=== PATIENT | female | born 1950 | race African-American/Black ===

== ENCOUNTER 2016-12-06 08:59 | Day surgery (SDC) | payer BC ==
[2016-11-21 15:37] VITALS: BMI 30.7
--- NOTE | 2016-11-25 09:41 | HP ---
Admitting History and Physical - Primary Care Physician PCP: Neptali Griffiths - Admission Chief Complaint: right breast cancer History of Present Illness: Patient is a 66 yo female noted to have a palpable right breast mass by her PCP over the summer. Patient had a mammogram and US which was c/w 2.1 cm mass at 11 o clock. 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 MRI done 04/12/16 was c/w known cancer as well as two suspicious right axillary lymph nodes. Bx of the two nodes were c/w benign pathology. PET scan was also negative for metastatic dz. Patient received neoadjuvant chemo and followup MRI showed a marked response to the chemotherapy. Patient is now presenting for right WE with NL, SNBx, possible ANDx with lymphoscintogram. History Source: Patient Limitations to Obtaining History: No Limitations - Past Medical History Cardiovascular: Yes: HTN Pulmonary: Yes: Other (H/O PE on eliquis) Heme/Onc: Yes: Sickle Cell Trait, Other (DVT/PE) Musculoskeletal: Yes: Other Rheumatology: Yes: Gout - Past Surgical History Past Surgical History: Yes: Breast Biopsy (left breast bx (1966)), (2) - Advance Directives Advance Directives: Yes: Health Care Proxy - Smoking History Smoking history: Never smoked Have you smoked in the past 12 months: No - Alcohol/Substance Use Hx Alcohol Use: Yes (SOCIALLY) - Social History History of Recent Travel: No Home Medications - Allergies Allergies/Adverse Reactions: Allergies Allergy/AdvReac Type Severity Reaction Status Date / Time colchicine Allergy Intermediate Hives Verified 11/21/16 15:24 - Home Medications Home Medications: Ambulatory Orders Allopurinol [Zyloprim -] 100 mg PO DAILY 06/14/16 Apixaban [Eliquis -] 2.5 mg PO BID 06/14/16 Atorvastatin Calcium 20 mg PO HS 06/14/16 Valsartan [Diovan] 80 mg PO BID 06/14/16 Amlodipine Besylate 5 mg PO DAILY 11/21/16 Family Disease History - Family Disease History Family Disease History: CA: Mother (gastric ca 70) Review of Systems - Review of Systems Breasts: reports: Other (No palpable right breast mass.) Physical Examination Constitutional: Yes: Well Nourished Breast(s): Yes: Other (No skin changes noted. Right breast mass without palpable mass) Problem List - Problems (1) Breast cancer, right Code(s): C50.911 - MALIGNANT NEOPLASM OF UNSP SITE OF RIGHT FEMALE BREAST Qualifiers: Breast location: upper outer quadrant of breast Patient gender: female Qualified Code(s): C50.411 - Malignant neoplasm of upper-outer quadrant of right female breast Assessment/Plan Plan: right breast WE with NL, SNBx, possible ANDx with lympho
[2016-12-06] MEDS ORDERED: SUCCINYLCHOLINE CHLORIDE 200 MG/10 ML VIAL ONE (12:48)
[2016-12-06] MEDS ORDERED: MIDAZOLAM HCL 2 MG/2 ML SINGLE DOSE VIAL ONE (12:49)
[2016-12-06] MEDS ORDERED: ONDANSETRON 4 MG/2 ML VIAL IVPB PRN (13:16)
[2016-12-06] MEDS ORDERED: DEXTROSE 5%-0.45% SALINE 1,000 ML IV SCH (13:30)
[2016-12-06] MEDS ORDERED: ONDANSETRON 4 MG/2 ML VIAL IVPUSH PRN (13:37)
[2016-12-06] MEDS ORDERED: LACTATED RINGERS SOLUTION 1,000 ML IV SCH (13:45)
[2016-12-06] MEDS ORDERED: PROMETHAZINE HCL 25 MG/1 ML VIAL IVPUSH PRN (14:11)
[2016-12-06] MEDS ORDERED: DESFLURANE GAS 240 ML BOTTLE IH ONE (14:26)
[2016-12-06 19:39] VITALS: BP 134/72; PULSE 78; TEMP 97.9
--- NOTE | 2016-12-07 09:40 | OP ---
DATE OF OPERATION: 12/06/2016 PREOPERATIVE DIAGNOSIS: Right breast cancer status post neoadjuvant chemotherapy. POSTOPERATIVE DIAGNOSIS: Right breast cancer status post neoadjuvant chemotherapy. PROCEDURE: Right breast partial mastectomy with complex tissue transfer and sentinel lymph node biopsy. ANESTHESIA: General intubated. ATTENDING SURGEON: Neptali Cervantes MD SPECIAL EFFECTS DESIGNER: ESTIMATED BLOOD LOSS: Minimal. COMPLICATIONS: None. DESCRIPTION OF PROCEDURE: The patient was made aware of the risks and benefits of the procedure and consented. The patient was placed in the supine position after going to the radiology suite where a needle was placed next to the index lesion and then to nuclear medicine where radioisotope tracer was injected into the right breast. After general anesthesia was induced, the patient was intubated. The operative site was prepped and draped in the usual sterile fashion. Then 2.5 mL of 1% isosulfan blue was locally infiltrated into the peritumoral tissues. Waiting approximately 10 minutes with gently manual compression, curvilinear incision was made in the right axilla using blunt and sharp dissection. Tissues were dissected down, which revealed 2 clusters of blue and hot lymph nodes that were surgically excised and submitted for pathological assessment. Touch prep analysis revealed no evidence of metastasis. Palpation of the rest of the axilla revealed no other suspicious lymph nodes, and the counts were less than 10% of the original baseline counts before surgery. The breast was then approached. A curvilinear incision was made next to the needle. Thick skin flaps were made. The needle was drawn through the puncture site and the wire . Two sutures were then excised around the needle and submitted with a short suture superior and long suture lateral. Specimen radiograph confirmed the presence of the index lesion. Additional segments were taken superior, inferior, mediolateral, deep, and anterior with clips at the new margins. The wound was copiously irrigated with normal saline. Hemostasis maintained by electrocautery. Thick tissue flaps were made by using electrocautery to take the breast tissue off the pectoralis muscle and rotating it into the defect with multiple layers of [id number] sutures of 2-0 Vicryl in a scaffolding-type fashion. The skin was then closed with deep 0 Vicryl followed by a running subcuticular 4-0 Monocryl. Steri-Strips and a sterile bandage was applied, and the patient having tolerated the procedure well, was transferred to the recovery room in excellent condition. NEPTALI ANDERSON M.D. VALE/[id number]
--- NOTE | 2016-12-10 14:41 | PATH ---
Surgical Pathology Report Patient Name: BEN GURROLA [facility]. Rec. #: [id number] /Age/Gender: 1950 (Age: 66) / F Account: [id number] Location: [facility] Taken: 12/06/2016 Received: 12/06/2016 Reported: 12/10/2016 Physicians: Neptali Griffiths M.D. Specimen(s) Received A: RIGHT AXILLARY SENTINEL NODES. FS#1 B: RIGHT BREAST WIDE EXCISION C: RIGHT BREAST DEEP MARGIN D: RIGHT BREAST SUPERIOR MARGIN E: RIGHT BREAST MEDIAL MARGIN F: RIGHT BREAST INFERIOR MARGIN G: RIGHT BREAST LATERAL MARGIN H: RIGHT BREAST ANTERIOR MARGIN Clinical History Right breast cancer Status post neoadjuvant chemotherapy Intraoperative Consult Diagnosis A. Right axillary sentinel nodes, touch prep: Two benign lymph nodes. Dr. Vergara, 12/06/2016. Final Diagnosis A. LYMPH NODES, RIGHT AXILLARY, SENTINEL LYMPH NODE EXCISION: TWO BENIGN LYMPH NODES (0/2) BY STANDARD HEMATOXYLIN AND EOSIN STAIN (MULTIPLE LEVELS EXAMINED) AND AE1/3 IMMUNOSTAIN. HYALINIZED NODULE WITH CALCIFICATION AND METAPLASTIC OSSIFICATION PRESENT, SUGGESTIVE OF PRIOR BIOPSY SITE. B. RIGHT BREAST, WIDE EXCISION: FOCAL ATYPICAL DUCTAL HYPERPLASIA (ADH) ARISING IN A BACKGROUND OF FIBROCYSTIC CHANGES INCLUDING STROMAL FIBROSIS AND DUCTAL DILATATION. FAT NECROSIS AND FIBROSIS ALONG WITH HYALINIZED NODULE WITH CALCIFICATION AND METAPLASTIC OSSIFICATION SUGGESTIVE OF PRIOR BIOPSY SITE PRESENT. SMALL FIBROADENOMA PRESENT. NO RESIDUAL CARCINOMA IDENTIFIED. C. RIGHT BREAST, DEEP MARGIN, EXCISION: BENIGN BREAST TISSUE. BENIGN LYMPH NODE WITH HYALINIZED NODULE WITH CALCIFICATION AND METAPLASTIC OSSIFICATION PRESENT, SUGGESTIVE OF PRIOR BIOPSY SITE. D. RIGHT BREAST, SUPERIOR MARGIN, EXCISION: BENIGN BREAST TISSUE. E. RIGHT BREAST, MEDIAL MARGIN, EXCISION: BENIGN BREAST TISSUE. F. RIGHT BREAST, INFERIOR MARGIN, EXCISION: BENIGN BREAST TISSUE AND SMALL FIBROADENOMA. G. RIGHT BREAST, LATERAL MARGIN, EXCISION: BENIGN BREAST TISSUE. H. RIGHT BREAST, ANTERIOR MARGIN, EXCISION: FOCAL ATYPICAL DUCTAL HYPERPLASIA (ADH) ARISING IN A BACKGROUND OF BENIGN FATTY BREAST TISSUE. Comment: Also see prior specimens [id number] and DC16-10. Comments Breast Invasive Carcinoma: Surgical Pathology Cancer Case Summary Based on AJCC/UICC TNM, 7th edition Procedure _X__ Excision without image-guided localization Lymph Node Sampling (select all that apply) (required only if lymph nodes are present in the specimen) _X__ [place] lymph node(s) _X__ Lymph nodes present within the breast specimen (ie, intramammary lymph nodes) Specimen Laterality _X__ Right Tumor Size: Size of Largest Invasive Carcinoma _X__ No residual invasive carcinoma Tumor Focality _X__ No residual invasive carcinoma Macroscopic and Microscopic Extent of Tumor Skin _X__ Invasive carcinoma does not invade into the dermis or epidermis Nipple _X__ Not applicable (excisions less than total mastectomy) Ductal Carcinoma In Situ (DCIS) _X__ No DCIS is present Histologic Type of Invasive Carcinoma : _X__ Invasive carcinoma of no special type (ductal, not otherwise specified) Histologic Grade: ([place] Histologic Score) Tubular Differentiation _X__ No residual invasive carcinoma Nuclear Pleomorphism _X__ No residual invasive carcinoma Mitotic Rate _X__ No residual invasive carcinoma Overall Grade _X__ No residual invasive carcinoma after presurgical (neoadjuvant) therapy Margins _X__ Margins uninvolved by invasive carcinoma (required only if residual invasive carcinoma is present in specimen) Distance from closest margin: Cannot be determined. No residual carcinoma identified. _X__ Margins uninvolved by DCIS (required only if residual DCIS is present in specimen) Distance from closest margin: Cannot be determined. No residual carcinoma identified. Lymph-Vascular Invasion _X__ Not identified Lymph Nodes Total number of lymph nodes examined (sentinel and nonsentinel): _3 Number of sentinel lymph nodes examined: 2 Number of lymph nodes with macrometastases ( > 2 mm): 0 Number of lymph nodes with micrometastases (>0.2 mm to 2 mm and/or >200cells):0 Number of lymph nodes with isolated tumor cells (=0.2 mm and =200 cells): 0 Extranodal Extension _X__ Not identified Pathologic Staging (pTNM) Primary Tumor (Invasive Carcinoma): ypT0 Regional Lymph Nodes (pN): ypN0(i-) Biomarker Studies Results of ER and IA studies performed on a prior biopsy ( [id number]) block "2" at [facility] are as follows: ER (clone [id number] mouse monoclonal antibody by [employer]): 0% nuclear staining (Negative). IA (clone16 mouse monoclonal antibody by [employer]) : 0% nuclear staining (Negative). Results of Her2 (IHC) & Ki-67 studies performed on a prior biopsy ( [id number]) at [place], [place] ( [id number]) are as follows: Her2 IHC (EP3 from [employer], formerly known as [id number], using [employer] Polymer Refine detection kit): 1+ Negative Ki67: ~80% (High proliferative index) Positive and negative controls (internal if applicable) show appropriate results. Formalin fixation and cold ischemic times are within current ASCO/CAP recommendations for ER, IA and Her2 testing. Electronically Signed Speedy Vergara M.D. Gross Description A. Received fresh for frozen section labeled "right axillary sentinel nodes" is a 5 x 2.5 x 1.5 cm aggregate of yellow fatty tissue containing 2 lymph nodes. Cut surface of the lymph nodes reveals a fatty interior with no distinct lesion identified. Touch preps are prepared. The smaller lymph node is sectioned and submitted in cassettes 1 and 2. The larger lymph node is sectioned and submitted in cassettes 3-6. B. Received in formalin, labeled "right breast wide excision," is a 5.5 x 4.8 x 2.0 cm. cobb-yellow, irregular, portion of fibroadipose tissue. There is no needle localization wire present. There is a short suture marking the superior aspect and a long suture marking the lateral aspect, per the surgeon. There is no skin or nipple present. The specimen is inked as follows: superior and lateral blue; inferior green; medial yellow; anterior red; deep black. The specimen is serially sectioned from superior to inferior. Sectioning reveals a 1.5 x 1.2 x 0.8 cm cobb, ill-defined, indurated mass with associated hemorrhage. The mass is at 0.3 cm from the anterior margin and 0.4 cm from the deep margin. The remaining breast parenchyma displays focally firm fibrous tissue. [employer] sections are submitted in 9 cassettes as follows: 1-full face section of mass with anterior and deep margins; 6-7-buarxjfjwt mass with anterior and deep margins; 4-5-firm fibrous tissue surrounding mass with anterior and deep margins; 6-superior margin; 7-lateral margin; 8-medial margin; 9-inferior margin. Time to formalin fixation: 10 minutes Total formalin fixation time: Approximately 76 hours. C. Received in formalin, labeled "deep margin right breast," is a 5.0 x 3.6 x 2.0 cm irregular portion of fibroadipose tissue with a clip marking the new margin, per the surgeon. The new margin is inked green and the specimen is serially sectioned. Sectioning reveals a 0.8 x 0.8 x 0.7 cm cobb, indurated mass. The mass displays a metallic biopsy clip. The mass is at 0.4 cm from the new margin. S[employer]iting Fre[employer] Agent sections are sequentially submitted in 7 cassettes with the mass in cassettes 2-4. D. Received in formalin labeled "superior margin right breast," is a 3.5 x 2.6 x 1.4 cm irregular portion of fibroadipose tissue with a clip marking the new margin, per the surgeon. The new margin is inked green and the specimen is serially sectioned. The specimen is entirely and sequentially submitted in 6 cassettes. E. Received in formalin labeled "medial margin right breast" is a 2.2 x 2.0 x 0.5 cm irregular portion of fibroadipose tissue with a clip marking the new margin, per the surgeon. The new margin is inked green and the specimen is serially sectioned. The specimen is entirely and sequentially submitted in 3 cassettes. F. Received in formalin labeled "inferior margin right breast," is a 2.8 x 2.1 x 0.8 cm irregular portion of fibroadipose tissue with a clip marking the new margin, per the surgeon. The new margin is inked green and the specimen is serially sectioned. The specimen is entirely and sequentially submitted in 4 cassettes. G. Received in formalin labeled "lateral margin right breast," is a 2.4 x 2.0 x 0.7 cm irregular portion of fibroadipose tissue with a clip marking the new margin, per the surgeon. The new margin is inked green and the specimen is serially sectioned. The specimen is entirely and sequentially submitted in 3 cassettes. H. Received in formalin labeled "anterior margin right breast," is a 2.5 x 1.4 x 0.8 cm irregular portion of fibroadipose tissue with a clip marking the new margin, per the surgeon. The new margin is inked green and the specimen is serially sectioned. The specimen is entirely submitted in 3 cassettes. [facility]/12/06/2016 [facility]/12/06/2016
== END 2016-12-06 16:00 | disposition home or self-care (01) ==
LOC: FASU 08:59
PROVIDERS: ATTEND Surgery Surgical Oncology
PROC: 0HBT0ZZ Excision of Right Breast, Open Approach (ICD-10-PCS; principal; 2016-12-06 13:00)
PROC: 07B50ZX Excision of Right Axillary Lymphatic, Open Approach, Diagnostic (ICD-10-PCS; 2016-12-06 13:00)
PROC: 0JX60ZC Transfer Chest Subcutaneous Tissue and Fascia with Skin, Subcutaneous Tissue and Fascia, Open Approach (ICD-10-PCS; 2016-12-06 13:00)
DX: C50.911 Malignant neoplasm of unspecified site of right female breast (principal); Z92.21 Personal history of antineoplastic chemotherapy
CPT/HCPCS: 19281; 78195-TC; 88307-TC; 88333; 88342-TC; 94760; A9541

== ENCOUNTER 2017-01-09 08:55 | Emergency (ER) | payer BC, OTHER ==
[2017-01-09 09:07] VITALS: TEMP 98.3; BMI 31.6
--- NOTE | 2017-01-09 09:09 | PDOC ---
History of Present Illness - History of Present Illness Initial Comments: 01/09/17 09:44 The patient is a 66 year old female with a past medical hx of HTN, hyperlipidemia, current breast cancer (radiation 5 days a week) s/p lumpectomy who presents to the ED complaining of intermittent lightheadedness since this morning. The patient reports she was pulling into the parking lot at work when she began to feel lightheaded. She states she felt as if she was going to pass out. She denies any vertigo. She denies a hx of syncopal episodes. The patient reports she finished chemotherapy for her breast cancer in September and is now receiving radiation 5 days a week. She started on Friday and today will be her fourth day. She states she has not had any symptoms from the radiation and has been able to eat and drink normally. The patient denies any chest pain, SOB The patient denies any fever, chills, nausea, vomiting, diarrhea, headache PCP: Dr. Dominguez Surgical: Lumpectomy <Marcella Wilder - Last Filed: 01/09/17 14:24> <Jhonathan Pena - Last Filed: 01/09/17 14:51> - General Chief Complaint: Lightheaded Stated Complaint: WEAKNESS Past History <Marcella Wilder - Last Filed: 01/09/17 14:24> - Past Medical History Anemia: No Asthma: No Cancer: Yes (RIGHT BREAST 04/10/16) Cardiac Disorders: No CVA: No COPD: No (BLD CLOT LUNG 09/2014) CHF: No Dementia: No Diabetes: No GI Disorders: No Disorders: No HTN: Yes Hypercholesterolemia: Yes Liver Disease: No Seizures: No Thyroid Disease: No - Surgical History Abdominal Surgery: No Appendectomy: No Cardiac Surgery: No Cholecystectomy: No Lung Surgery: No Neurologic Surgery: No Orthopedic Surgery: No - Psycho/Social/Smoking Cessation Hx Anxiety: No Suicidal Ideation: No Smoking History: Never smoked Have you smoked in the past 12 months: No Information on smoking cessation initiated: No Hx Alcohol Use: No Drug/Substance Use Hx: No Substance Use Type: None Hx Substance Use Treatment: No <Jhonathan Pena - Last Filed: 01/09/17 14:51> - Past Medical History Allergies/Adverse Reactions: Allergies Allergy/AdvReac Type Severity Reaction Status Date / Time colchicine Allergy Intermediate Hives Verified 01/09/17 09:05 Home Medications: Ambulatory Orders Allopurinol [Zyloprim -] 100 mg PO DAILY 06/14/16 Atorvastatin Calcium 20 mg PO HS 06/14/16 Valsartan [Diovan] 80 mg PO BID 06/14/16 Amlodipine Besylate 5 mg PO DAILY 11/21/16 Apixaban [Eliquis -] 2.5 mg PO BID #0 12/06/16 Prednisone 5 mg PO ASDIR PRN 01/09/17 Review of Systems - Review of Systems Able to Perform ROS?: Yes Comments:: 01/09/17 09:44 GENERAL/CONSTITUTIONAL: No fever or chills. No weakness. HEAD, EYES, EARS, NOSE AND THROAT: No change in vision. No ear pain or discharge. No sore throat. CARDIOVASCULAR: No chest pain or shortness of breath. RESPIRATORY: No cough, wheezing, or hemoptysis. GASTROINTESTINAL: No nausea, vomiting, diarrhea or constipation. GENITOURINARY: No dysuria, frequency, or change in urination. MUSCULOSKELETAL: No joint or muscle swelling or pain. No neck or back pain. SKIN: No rash NEUROLOGIC: +Lightheadedness. No headache, vertigo, loss of consciousness, or change in strength/sensation. ENDOCRINE: No increased thirst. No abnormal weight change. HEMATOLOGIC/LYMPHATIC: No anemia, easy bleeding, or history of blood clots. ALLERGIC/IMMUNOLOGIC: No hives or skin allergy. <Marcella Wilder - Last Filed: 01/09/17 14:24> *Physical Exam - Vital Signs Last Vital Signs Temp Pulse Resp BP Pulse Ox 98.3 F 83 19 152/83 100 01/09/17 09:05 01/09/17 09:05 01/09/17 09:05 01/09/17 09:05 01/09/17 09:05 - Physical Exam Comments: 01/09/17 09:44 GENERAL: Awake, alert, and fully oriented, in no acute distress HEAD: No signs of trauma EYES: PERRLA, EOMI, sclera anicteric, conjunctiva clear ENT: Auricles normal inspection, hearing grossly normal, nares patent, oropharynx clear without exudates. Moist mucosa NECK: Normal ROM, supple, no lymphadenopathy, JVD, or masses LUNGS: Breath sounds equal, clear to auscultation bilaterally. No wheezes, and no crackles HEART: Regular rate and rhythm, normal S1 and S2, no murmurs, rubs or gallops ABDOMEN: Soft, nontender, normoactive bowel sounds. No guarding, no rebound. No masses EXTREMITIES: Normal range of motion, no edema. No clubbing or cyanosis. No cords, erythema, or tenderness NEUROLOGICAL: Cranial nerves II through XII grossly intact. Normal speech, normal gait SKIN: Warm, Dry, normal turgor, no rashes or lesions noted. <Marcella Wilder - Last Filed: 01/09/17 14:24> - Vital Signs Last Vital Signs Temp Pulse Resp BP Pulse Ox 98.3 F 83 19 152/83 100 01/09/17 09:05 01/09/17 09:05 01/09/17 09:05 01/09/17 09:05 01/09/17 09:05 <Jhonathan Pena - Last Filed: 01/09/17 14:51> Heart Score/ECG Review - ECG Impressions Comment:: 01/09/17 10:[address] Pena Impression NSR at a rate of 72 bpm Normal rate Normal axis Normal EKG <Marcella Wilder - Last Filed: 01/09/17 14:24> ED Treatment Course - LABORATORY CBC & Chemistry Diagram: 01/09/17 10:03 01/09/17 10:03 - RADIOLOGY Radiograph Interpretation: 01/09/17 10:55 CT/HEAD CT WITHOUT CONTRAST Clinical history: Lightheadedness. COMPARISON: MRI 05/01/2009. Contiguous transaxial images are obtained from the skull base to the vertex without the intravenous use of iodinated contrast material. Sagittal and coronal reconstructions were performed. There are no areas of diminished or increased attenuation seen. There is no ventricular compression, dilatation or extracerebral collection seen. There is no evidence of a shift of the midline structures. IMPRESSION: Normal noncontrast CT of the brain. Clinical correlation advised. Reported By: Asim Killian MD 01/09/17 1053 01/09/17 13:04 RAD/CHEST X-RAY PORTABLE* AP portable chest: Lightheadedness Since the prior study of 11/21/2016 at 1627 hours again noted is a left port with increased rotation to the right. There is an elevated left hemidiaphragm as before. There is no sign of an acute process. Impression : No significant change since prior study. Reported By: Asim Williamson MD 01/09/17 1152 <Marcella Wilder - Last Filed: 01/09/17 14:24> - LABORATORY CBC & Chemistry Diagram: 01/09/17 10:03 01/09/17 10:03 <Jhonathan Pena - Last Filed: 01/09/17 14:51> Medical Decision Making - Medical Decision Making 01/09/17 14:25 The patient is a 66 year old female with a past medical hx of HTN, hyperlipidemia, current breast cancer (radiation 5 days a week) s/p lumpectomy who presents to the ED complaining of intermittent lightheadedness since this morning. She reports she felt as if she was going to pass out. The patient reports no symptoms with her radiation and has been eating and drinking normally. She denies a hx of syncopal episodes. The plan is to order EKG, labs, CT head. CT unremarkable. The patient feels better after a liter of IV fluid. The patient can be discharged home. The patient understands and agrees with the plan for discharge. All questions answered. <Marcella Wilder - Last Filed: 01/09/17 14:24> *DC/Admit/Observation/Transfer - Attestations Scribe Attestion: 01/09/17 09:43 Documentation prepared by Marcella Wilder, acting as medical insurance verifier for Jhonathan Pena MD/. <Marcella Wilder - Last Filed: 01/09/17 14:24> - Discharge Dispostion Admit: No - Attestations Physician Attestion: 01/09/17 09:09 I, Dr. Jhonathan Pena, attest that this document has been prepared under my direction and personally reviewed by me in its entirety. I further attest, that it accurately reflects all work, treatment, procedures and medical decision -making performed by me. <Jhonathan Pena - Last Filed: 01/09/17 14:51> Diagnosis at time of Disposition: Dehydration due to radiation - Discharge Dispostion Disposition: HOME Condition at time of disposition: Good - Referrals Referrals: Christian Dominguez MD [Primary Care Provider] - - Patient Instructions Printed Discharge Instructions: DI for Dehydration -- Adult Additional Instructions: Marilyn- You were dehydrated. That is why you were feeling like you were going to pass out. Please overhydrate yourself especially when you are doing the radiation treatment. Return to us if any problems. Follow up with Dr. Dominguez. Blake- Dr. Jhonathan Pena
[2017-01-09 10:15] LABS: BASOPHIL 1.6 % (0-2.0); EOSINOPHIL 2.6 % (0-4.5); MCH 29.8 pg (25.7-33.7); MEAN CELL VOLUME 90.4 fl (80-96); MEAN PLT VOLUME 8.4 fl (7.5-11.1); NEUTROPHILS 52.4 % (42.8-82.8); PLATELET COUNT 220 K/MM3 (134-434); RDW 16.7 % (11.6-15.6); WHITE BLOOD COUNT 4.9 K/mm3 (4.0-10.0)
[2017-01-09] MEDS ORDERED: SODIUM CHLORIDE 1,000 ML IV STA ×2 (10:17→11:28)
[2017-01-09 10:40] LABS: ALBUMIN 3.8 g/dl (3.4-5.0); ANION GAP 8 (8-16); BILIRUBIN,TOTAL 0.4 mg/dL (0.2-1.0); CALCIUM 8.8 mg/dL (8.5-10.1); CO2 25 mmol/L (21-32); COCKROFT - GAULT 58.6925; CREATININE 1.3 mg/dL (0.55-1.02); GLUCOSE,RANDOM 89 mg/dL (74-106); SGPT/ALT 22 U/L (12-78); TOT PROT 7.3 g/dl (6.4-8.2)
[2017-01-09 10:42] LABS: ALK PHOS 56 U/L (45-117); TROPONIN I < 0.02 ng/ml (0.00-0.05)
[2017-01-09 10:44] LABS: SGOT/AST 24 U/L (15-37)
[2017-01-09 11:19] LABS: INR 1.16 (0.82-1.09); PROTHROMBIN TIME (PATIENT) 12.8 SEC (9.98-11.88)
[2017-01-09 11:46] LABS: URINE APPEARANCE SLCLOUDY; URINE BILIRUBIN NEGATIVE (NEGATIVE); URINE BLOOD NEGATIVE (NEGATIVE); URINE COLOR STRAW; URINE GLUCOSE (UA) NEGATIVE (NEGATIVE); URINE KETONE NEGATIVE (NEGATIVE); URINE LEUK ESTERASE NEGATIVE (NEGATIVE); URINE NITRITE NEGATIVE (NEGATIVE); URINE PROTEIN NEGATIVE (NEGATIVE); URINE UROBILINOGEN NEGATIVE E.U./dl (0.2-1.0)
--- NOTE | 2017-01-09 12:20 | EKG ---
Test Reason : Blood Pressure : / mmHG Vent. Rate : 072 BPM Atrial Rate : 072 BPM P-R Int : 120 ms QRS Dur : 082 ms QT Int : 402 ms P-R-T Axes : 030 010 040 degrees QTc Int : 440 ms NORMAL SINUS RHYTHM NORMAL ECG WHEN COMPARED WITH ECG OF 21-NOV-2016 15:25, NO SIGNIFICANT CHANGE WAS FOUND Confirmed by BALAJI BROWN MD ([id number]) on 01/09/2017 12:19:44 PM Referred By: Confirmed By:BALAJI BROWN MD
[2017-01-09 14:42] VITALS: BP 138/63; PULSE 80
== END 2017-01-09 15:01 | disposition home or self-care (01) ==
LOC: JER 08:55
PROC: 3E0337Z Introduction of Electrolytic and Water Balance Substance into Peripheral Vein, Percutaneous Approach (ICD-10-PCS; principal; 2017-01-09)
DX: E86.0 Dehydration (principal); C50.911 Malignant neoplasm of unspecified site of right female breast; J44.9 Chronic obstructive pulmonary disease, unspecified; I10 Essential (primary) hypertension; E78.00 Pure hypercholesterolemia, unspecified
CPT/HCPCS: 36415; 70450-TC; 71010-TC; 80053; 81003; 82550; 84484; 85025; 85610; 87086; 93005; 93010; 99284-25

== ENCOUNTER 2017-01-14 09:00 | Day surgery (SDC) | payer BC, OTHER ==
--- NOTE | 2017-01-13 09:26 | HP ---
Admitting History and Physical - Primary Care Physician PCP: Neptali Griffiths - Admission Chief Complaint: right breast cancer History of Present Illness: 66 year old female S/P right breast wide excision sentenel node bx 12/06/2016 showing negative nodes and atypia in the path specimen S/P 3 cycles of AC and 12 weeks of taxol. Pet scan showed no evidence of mets. Here for life port removal. History Source: Patient Limitations to Obtaining History: No Limitations - Past Medical History Cardiovascular: Yes: HTN, Hyperlipdemia Pulmonary: Yes: Pulmonary Embolus, Other (H/O PE on eliquis) Heme/Onc: Yes: Sickle Cell Trait, Other (DVT/PE) Musculoskeletal: Yes: Other Rheumatology: Yes: Gout - Past Surgical History Past Surgical History: Yes: Additional Past Surgical History: left breast bx 1966 H/O left lung PE - Advance Directives Advance Directives: Yes: Health Care Proxy - Smoking History Smoking history: Never smoked Have you smoked in the past 12 months: No - Alcohol/Substance Use Hx Alcohol Use: Yes (SOCIAL) - Social History History of Recent Travel: No Home Medications - Allergies Allergies/Adverse Reactions: Allergies Allergy/AdvReac Type Severity Reaction Status Date / Time colchicine Allergy Intermediate Hives Verified 01/09/17 09:05 - Home Medications Home Medications: Ambulatory Orders Allopurinol [Zyloprim -] 100 mg PO DAILY 06/14/16 Atorvastatin Calcium 20 mg PO HS 06/14/16 Valsartan [Diovan] 80 mg PO BID 06/14/16 Amlodipine Besylate 5 mg PO DAILY 11/21/16 Apixaban [Eliquis -] 2.5 mg PO BID #0 12/06/16 Prednisone 5 mg PO ASDIR PRN 01/09/17 Family Disease History - Family Disease History Family Disease History: CA: Mother (gastric ca 70) Physical Examination Constitutional: Yes: Well Nourished Breast(s): Yes: Other (Right breast incision and axilla healing well incision intact no signs of infection or drainage) Problem List - Problems (1) Breast cancer, right Code(s): C50.911 - MALIGNANT NEOPLASM OF UNSP SITE OF RIGHT FEMALE BREAST Qualifiers: Breast location: upper outer quadrant of breast Qualified Code(s): C50.411 - Malignant neoplasm of upper-outer quadrant of right female breast Assessment/Plan Life port removal
[2017-01-14 09:38] VITALS: PULSE 72; BMI 31.6
[2017-01-14] MEDS ORDERED: MIDAZOLAM HCL 2 MG/2 ML SINGLE DOSE VIAL ONE ×3 (11:55→12:55)
[2017-01-14] MEDS ORDERED: KETOROLAC TROMETHAMINE 30 MG/1 ML VIAL IVPUSH PRN (12:12)
[2017-01-14] MEDS ORDERED: DEXTROSE 5%-0.45% SALINE 1,000 ML IV SCH (12:15)
[2017-01-14] MEDS ORDERED: ONDANSETRON 4 MG/2 ML VIAL IVPB PRN (12:20)
[2017-01-14] MEDS ORDERED: LIDOCAINE HCL/PF 2% SDV 5ML VIAL ONE (12:53)
[2017-01-14 14:31] VITALS: TEMP 97.8
[2017-01-14 14:53] VITALS: BP 118/66
--- NOTE | 2017-01-16 09:19 | PATH ---
Surgical Pathology Report Patient Name: BEN GURROLA Med. Rec. #: [id number] /Age/Gender: 1950 (Age: 66) / F Account: [id number] Location: [facility] AMBULATORY Taken: 01/14/2017 Received: 01/14/2017 Reported: 01/16/2017 Physicians: Neptali Griffiths M.D. Specimen(s) Received LIFE PORT Clinical History Right breast cancer Final Diagnosis COMMUNITY SUPPORT PROFESSIONAL, REMOVAL: COMMUNITY SUPPORT PROFESSIONAL CONSISTENT WITH LIFEPORT (GROSS ONLY). Electronically Signed Speedy Vergara M.D. Gross Description Received fresh labeled "life port," is a 2.6 x 2.4 x 1.5 cm purple, triangular device, consistent with a port. The port displays a 21 cm in length portion of tubing extending from one aspect. No soft tissue is present. No sections are submitted, gross only. /01/15/2017 saudi01/15/2017
--- NOTE | 2017-01-21 00:48 | OP ---
DATE OF OPERATION: 01/14/2017 PREOPERATIVE DIAGNOSIS: Right breast cancer. POSTOPERATIVE DIAGNOSIS: Right breast cancer. PROCEDURE: Left Lifeport removal. ANESTHESIA: IV sedation with local. ATTENDING SURGEON: Neptali Griffiths M.D. DEPUTY REGISTER OF DEEDS: ESTIMATED BLOOD LOSS: Minimal. COMPLICATIONS: None. DESCRIPTION OF PROCEDURE: Patient is made aware of risks and benefits of the procedure and consented. She was placed in supine position. After IV sedation was administered, the operative site was prepped and draped in the usual sterile fashion. Then 1% lidocaine was used for local anesthesia. Oblique incision was made over the prior incision, incised down to the port capsule. This is opened. The port is removed. Sharp dissection of the tissues around the attachment on the catheter to the port head. The catheter was carefully removed and submitted for gross only pathology. A catheter lumen was then closed with a [id number] suture of 3-0 Vicryl. Wound was copiously irrigated with normal saline. Hemostasis achieved by electrocautery. The wound was then closed with deep dermal Vicryl followed by running 4-0 Monocryl. Steri-Strips and sterile bandage applied, and the patient tolerated the procedure, was transferred to recovery room in excellent condition. NEPTALI GRIFFITHS M.D. [id number]
== END 2017-01-14 14:59 | disposition home or self-care (01) ==
LOC: FASU 09:00
PROVIDERS: ATTEND Surgery Surgical Oncology
PROC: 0JPT0XZ Removal of Tunneled Vascular Access Device from Trunk Subcutaneous Tissue and Fascia, Open Approach (ICD-10-PCS; principal; 2017-01-14 13:03)
DX: Z45.2 Encounter for adjustment and management of vascular access device (principal); Z85.3 Personal history of malignant neoplasm of breast; I10 Essential (primary) hypertension; E78.5 Hyperlipidemia, unspecified; Z86.711 Personal history of pulmonary embolism; Z79.01 Long term (current) use of anticoagulants; D57.3 Sickle-cell trait
CPT/HCPCS: 88300-TC

== ENCOUNTER 2017-07-16 10:28 | Observation (INO) | payer BC ==
[2017-07-16 10:32] VITALS: BMI 31.4
--- NOTE | 2017-07-16 10:55 | PDOC ---
History of Present Illness - General History Source: Patient Exam Limitations: No Limitations - History of Present Illness Initial Comments: 07/16/17 11:31 67 year old female, with significant past medical history of Breast cancer (s/p radiation and lumpectomy), HTN, HLD, Gout, who presents to the emergency room complaining of 1 episode of lightheadedness that began while sitting at her desk at work this morning. She explains that her eyes went black and she felt like she was going to pass out. This episode lasted for more than a couple of seconds. She reports that she feels weird in the head, but does not have a headache. She also reports feeling like she has to take a deep breath to get some air. The patient only had coffee this morning, but states that she normally doesn't eat anything until lunchtime. She notes that she got the flu shot last week and had a nonproductive cough since. Denies fever, chills, nausea, vomiting. Denies headache, blurred vision, double vision. Denies numbness, tingling, weakness. Denies chest pain, SOB. Allergies: colchicine PCP: Dr. Dominguez <Jayna Lopez - Last Filed: 07/16/17 13:04> <Rosemary Masterson - Last Filed: 07/16/17 13:30> - General Chief Complaint: Lightheaded Stated Complaint: LIGHTHEADED Time Seen by Provider: 07/16/17 10:55 Past History <Jayna Lopez - Last Filed: 07/16/17 13:04> - Past Medical History Anemia: No Asthma: No Cancer: Yes (RIGHT BREAST 04/10/16) Cardiac Disorders: No CVA: No COPD: No (PE 09/2014) CHF: No Dementia: No Diabetes: No GI Disorders: No Disorders: No HTN: Yes Hypercholesterolemia: Yes Liver Disease: No Seizures: No Thyroid Disease: No Other medical history: GOUT - Surgical History Abdominal Surgery: No Appendectomy: No Cardiac Surgery: No Cholecystectomy: No Lung Surgery: No Neurologic Surgery: No Orthopedic Surgery: No - Suicide/Smoking/Psychosocial Hx Smoking History: Never smoked Have you smoked in the past 12 months: No Hx Alcohol Use: Yes (SOCIAL) Drug/Substance Use Hx: No Substance Use Type: None Hx Substance Use Treatment: No <Rosemary Masterson - Last Filed: 07/16/17 13:30> - Past Medical History Allergies/Adverse Reactions: Allergies Allergy/AdvReac Type Severity Reaction Status Date / Time colchicine Allergy Intermediate Hives Verified 07/16/17 10:32 Home Medications: Ambulatory Orders Allopurinol [Zyloprim -] 100 mg PO HS 06/14/16 Atorvastatin Calcium 20 mg PO HS 06/14/16 Valsartan [Diovan] 80 mg PO BID 06/14/16 Amlodipine Besylate 5 mg PO DAILY 11/21/16 Apixaban [Eliquis -] 2.5 mg PO BID #0 12/06/16 Prednisone 5 mg PO ASDIR PRN 01/09/17 Acetaminophen [Tylenol] 650 mg PO TID PRN #20 tablet 01/14/17 Review of Systems - Review of Systems Able to Perform ROS?: Yes Comments:: 07/16/17 11:31 GENERAL/CONSTITUTIONAL: +lightheadedness. No fever or chills. No weakness. HEAD, EYES, EARS, NOSE AND THROAT: No change in vision. No ear pain or discharge. No sore throat. GASTROINTESTINAL: No nausea, vomiting, diarrhea or constipation. GENITOURINARY: No dysuria, frequency, or change in urination. CARDIOVASCULAR: No chest pain or shortness of breath. RESPIRATORY: No cough, wheezing, or hemoptysis. MUSCULOSKELETAL: No joint or muscle swelling or pain. No neck or back pain. SKIN: No rash NEUROLOGIC: No headache, vertigo, loss of consciousness, or change in strength/ sensation. ENDOCRINE: No increased thirst. No abnormal weight change. HEMATOLOGIC/LYMPHATIC: No anemia, easy bleeding, or history of blood clots. ALLERGIC/IMMUNOLOGIC: No hives or skin allergy. <Jayna Lopez - Last Filed: 07/16/17 13:04> *Physical Exam - Vital Signs Last Vital Signs Temp Pulse Resp BP Pulse Ox 97.6 F 77 20 153/82 100 07/16/17 10:29 07/16/17 10:29 07/16/17 10:29 07/16/17 10:29 07/16/17 10:29 - Physical Exam Comments: 07/16/17 11:31 Constitutional: Awake, alert, oriented. No acute distress. Head: Normocephalic. Atraumatic Eyes: PERRL. EOMI. Conjunctivae are not pale. ENT: Mucous membranes are moist and intact. Posterior pharynx without exudates or erythema. Uvula midline. Neck: Supple. Full ROM. No lymphadenopathy. Cardiovascular: Regular rate. Regular rhythm. S1, S2 regular. Distal pulses are 2+ and symmetric. Pulmonary/Chest: No evidence of respiratory distress. Clear to auscultation bilaterally No wheezing, rales or rhonchi. Abdominal: Soft and non-distended. There is no tenderness. No rebound, guarding or rigidity. No organomegaly. No palpable masses. Good bowel sounds. Back: No CVA tenderness. Musculoskeletal: No edema. No cyanosis. No clubbing. Full range of motion in all extremities. Nocalf tenderness. Radial/pedal pulses are intact and 2+ bilaterally Skin: Skin is warm and dry. No petechiae. No purpura. Neurological: Alert and oriented to person, place, and time. Cranial nerves II -XII are grossly intact. Normal speech. Strength is grossly symmetric. No sensory deficits. Psychiatric: Good eye contact. Normal interaction, affect and behavior. <Jayna Lopez - Last Filed: 07/16/17 13:04> - Vital Signs Last Vital Signs Temp Pulse Resp BP Pulse Ox 97.6 F 77 20 153/82 100 07/16/17 10:29 07/16/17 10:29 07/16/17 10:29 07/16/17 10:29 07/16/17 10:29 <Rosemary Masterson - Last Filed: 07/16/17 13:30> Heart Score/ECG Review - ECG Intrepretation Comment:: 07/16/17 13:05 sinus at 66, nl axis, nl interval, no acute st/t wave findings <Rosemary Masterson - Last Filed: 07/16/17 13:30> ED Treatment Course - LABORATORY CBC & Chemistry Diagram: 07/16/17 12:00 07/16/17 12:00 - RADIOLOGY Radiograph Interpretation: 07/16/17 13:04 EXAM#: TYPE/EXAM: RESULT: [id number] CT/HEAD CT WITHOUT CONTRAST Headache CT scan of the brain without intravenous contrast. Compared to prior CT scan of the head dated 01/09/2017 The ventricles and basal cisterns appear unremarkable. No gross mass lesion, focal infarct or intracranial hemorrhage are identified. Visualized paranasal sinuses and mastoid air cells are well-aerated. The calvarium is intact. Impression: No significant interval change No evidence of a focal intracranial lesion or hemorrhage seen. Reported By: Shannan Partida MD 07/16/17 1257 EXAM#: TYPE/EXAM: RESULT: [id number] RAD/CHEST X-RAY PORTABLE* Chest portable one view Clinical information - dyspnea As on a prior radiographic study of 01/09/2017 there is mild to moderate elevation of the left diaphragm. A dilated bowel loop is seen within the left upper abdomen adjacent to the diaphragm - ? incidental transient dilatation versus pathologic dilatation. Correlate clinically. No discrete infiltrate or pleural effusion is noted. The heart, enrico and mediastinum demonstrate no obvious intrinsic abnormality. As on the prior study there is mild rightward mediastinal displacement probably secondary to previously described chronic elevation of the left diaphragm. IMPRESSION: As discussed above. Reported By: Primo Watts MD 07/16/17 1248 <Jayna Lopez - Last Filed: 07/16/17 13:04> - LABORATORY CBC & Chemistry Diagram: 07/16/17 12:00 07/16/17 12:00 <Rosemary Masterson - Last Filed: 07/16/17 13:30> Medical Decision Making - Medical Decision Making 07/16/17 11:47 67yo female with episode of near syncope/lightheaded while at work -orthostatic vs (took bp meds without eating) -bg -labs -trop -ekg/cxr - mild dyspnea -neuro intact -monitor -ua -reassess 07/16/17 13:14 re-olivia;: pt states symptoms resolved. Pt at this time states symptoms resolved. did on have dyspnea earlier. pt follows with Dr. Dominguez given lightheaded and dyspnea should stay in obs for near syncope and cardiac enzymes discussed lab results with the patient and imaging results. No focal neuro deficits microblog sent to Dr. Lobo. 07/16/17 13:[address] Lobo, who accepts pt to service. <Rosemary Masterson - Last Filed: 07/16/17 13:30> *DC/Admit/Observation/Transfer - Attestations Scribe Attestion: 07/16/17 11:32 Documentation prepared by JEB Payton, acting as medical research associate for Rosemary Masterson DO <Jayna Lopez - Last Filed: 07/16/17 13:04> - Discharge Dispostion Admit: Yes - Attestations Physician Attestion: 07/16/17 13:30 I, Dr. Rosemary Masterson DO, attest that this document has been prepared under my direction and personally reviewed by me in its entirety. I further attest, that it accurately reflects all work, treatment, procedures and medical decision -making performed by me. <Rosemary Masterson - Last Filed: 07/16/17 13:30> Diagnosis at time of Disposition: Near syncope, Dyspnea - Discharge Dispostion Condition at time of disposition: Fair - Referrals Referrals: Christian Dominguez MD [Primary Care Provider] -
[2017-07-16] MEDS ORDERED: SODIUM CHLORIDE 0.9% 1000 ML INFUS.BAG IV ONE (11:11)
[2017-07-16 12:07] LABS: URINE APPEARANCE CLOUDY; URINE BILIRUBIN NEGATIVE (NEGATIVE); URINE BLOOD NEGATIVE (NEGATIVE); URINE COLOR YELLOW; URINE GLUCOSE (UA) NEGATIVE (NEGATIVE); URINE KETONE NEGATIVE (NEGATIVE); URINE NITRITE NEGATIVE (NEGATIVE); URINE PROTEIN NEGATIVE (NEGATIVE); URINE UROBILINOGEN NEGATIVE mg/dL (0.2-1.0)
[2017-07-16 12:09] LABS: BASOPHIL 1.2 % (0-2.0); EOSINOPHIL 2.4 % (0-4.5); MCH 30.5 pg (25.7-33.7); MCHC 33.4 g/dl (32.0-36.0); MEAN CELL VOLUME 91.4 fl (80-96); MEAN PLT VOLUME 7.6 fl (7.5-11.1); NEUTROPHILS 47.1 % (42.8-82.8); PLATELET COUNT 212 K/MM3 (134-434); RDW 14.7 % (11.6-15.6); WHITE BLOOD COUNT 4.9 K/mm3 (4.0-10.0)
[2017-07-16 12:37] LABS: ALBUMIN 4.1 g/dl (3.4-5.0); ANION GAP 10 (8-16); CALCIUM 9.3 mg/dL (8.5-10.1); CO2 26 mmol/L (21-32); GLUCOSE,RANDOM 92 mg/dL (74-106); MAGNESIUM 2.2 mg/dL (1.8-2.4)
[2017-07-16 12:43] LABS: ALK PHOS 56 U/L (45-117); BILIRUBIN,TOTAL 0.4 mg/dL (0.2-1.0); CPK 99 IU/L (26-192); CREATININE 1.3 mg/dL (0.55-1.02); SGOT/AST 21 U/L (15-37); SGPT/ALT 33 U/L (12-78); TROPONIN I < 0.02 ng/ml (0.00-0.05)
[2017-07-16] MEDS ORDERED: ACETAMINOPHEN 325 MG TABLET (FP) PO PRN ×2 (14:21)
--- NOTE | 2017-07-16 14:26 | HP ---
Admitting History and Physical - Primary Care Physician PCP: Christian Dominguez - Admission Chief Complaint: I almost blacked out History of Present Illness: Ms Castillo is a very pleasant 67 year old female who comes in with episode of lightheadedness. She says she was sitting at her desk when she felt lightheaded. She says it was not vertigo, but like she was going to pass out. She says she closed her eyes to help control it, and that opening her eyes made the feeling worse. She cannot describe what worse means. She at first says she saw black, but then says it was black because her eyes were closed and she does not know if she had actual visual changes. She says this lasted about a minute. She has history of presyncope in the past but says this is different. She currently feels fine and is without complaint. She denies any other symptoms associated with the lightheadedness. She denies fevers, chills, passing out, changes in hearing, difficulty word finding, facial droop, drooling, numbness or tingling, chest pain or pressure, palpitations, fluttering, shortness of breath, nausea, vomiting, diarrhea, constipation, difficulty or pain on urination, or swelling. History Source: Patient Limitations to Obtaining History: No Limitations - Past Medical History Cardiovascular: Yes: HTN Pulmonary: Yes: Other Heme/Onc: Yes: Sickle Cell Trait, Other (DVT/PE) Musculoskeletal: Yes: Other Rheumatology: Yes: Gout - Past Surgical History Past Surgical History: Yes: - Smoking History Smoking history: Never smoked Have you smoked in the past 12 months: No - Alcohol/Substance Use Hx Alcohol Use: Yes (SOCIAL) History of Substance Use: reports: None - Social History ADL: Independent History of Recent Travel: No Home Medications - Allergies Allergies/Adverse Reactions: Allergies Allergy/AdvReac Type Severity Reaction Status Date / Time colchicine Allergy Intermediate Hives Verified 07/16/17 10:32 - Home Medications Home Medications: Ambulatory Orders Allopurinol [Zyloprim -] 100 mg PO HS 06/14/16 Atorvastatin Calcium 20 mg PO HS 06/14/16 Valsartan [Diovan] 80 mg PO BID 06/14/16 Amlodipine Besylate 5 mg PO DAILY 11/21/16 Apixaban [Eliquis -] 2.5 mg PO BID #0 12/06/16 Prednisone 5 mg PO ASDIR PRN 01/09/17 Acetaminophen [Tylenol] 650 mg PO TID PRN #20 tablet 01/14/17 Family Disease History - Family Disease History Family Disease History: CA: Mother (gastric ca 70) Review of Systems Findings/Remarks: full review of systems obtained, as per HPI and otherwise negative Physical Examination Vital Signs: Vital Signs Temperature 36.6 C 07/16/17 13:30 Pulse Rate 74 07/16/17 13:30 Respiratory Rate 16 07/16/17 13:30 Blood Pressure 134/72 07/16/17 13:30 O2 Sat by Pulse Oximetry (%) 97 07/16/17 13:30 Constitutional: Yes: Well Nourished, No Distress, Calm Eyes: Yes: Conjunctiva Clear, EOM Intact, PERRL HENT: Yes: Atraumatic, Normocephalic Cardiovascular: Yes: Regular Rate and Rhythm. No: Gallop, Murmur, Rub Respiratory: Yes: Regular, CTA Bilaterally. No: Rales, Rhonchi, Wheezes Gastrointestinal: Yes: Normal Bowel Sounds, Soft. No: Distention, Tenderness Extremities: Yes: WNL Edema: No Labs: Laboratory Results - last 24 hr 07/16/17 07/16/17 07/16/17 11:34 11:45 12:00 WBC RBC Hgb Hct MCV MCH MCHC RDW Plt Count MPV Neutrophils % Lymphocytes % Monocytes % Eosinophils % Basophils % Sodium 141 Potassium 4.4 Chloride 105 Carbon Dioxide 26 Anion Gap 10 BUN 24 H Creatinine 1.3 H Creat Clearance w eGFR 40.98 POC Glucometer 105.77668 Random Glucose 92 Calcium 9.3 Magnesium 2.2 D Total Bilirubin 0.4 AST 21 D ALT 33 D Alkaline Phosphatase 56 Creatine Kinase 99 Troponin I < 0.02 Total Protein 8.0 Albumin 4.1 Urine Color Yellow Urine Appearance Cloudy Urine pH 5.0 Urine Protein Negative Urine Glucose (UA) Negative Urine Ketones Negative Urine Blood Negative Urine Nitrite Negative Urine Bilirubin Negative Urine Urobilinogen Negative 07/16/17 12:00 WBC 4.9 RBC 3.87 Hgb 11.8 Hct 35.3 MCV 91.4 MCH 30.5 MCHC 33.4 RDW 14.7 Plt Count 212 MPV 7.6 Neutrophils % 47.1 D Lymphocytes % 38.1 Monocytes % 11.2 H Eosinophils % 2.4 Basophils % 1.2 Sodium Potassium Chloride Carbon Dioxide Anion Gap BUN Creatinine Creat Clearance w eGFR POC Glucometer Random Glucose Calcium Magnesium Total Bilirubin AST ALT Alkaline Phosphatase Creatine Kinase Troponin I Total Protein Albumin Urine Color Urine Appearance Urine pH Urine Protein Urine Glucose (UA) Urine Ketones Urine Blood Urine Nitrite Urine Bilirubin Urine Urobilinogen Imaging - Results Chest X-ray: Report Reviewed, Image Reviewed Cat Scan: Report Reviewed Problem List - Problems (1) Near syncope Assessment/Plan: -patient with episode of presyncope while sitting -admit to tele obs -hydrate with IVF -ECHO and carotid ultrasound -sees Dr Crowell, will consult cardiology -possible discharge in am Code(s): R55 - SYNCOPE AND COLLAPSE (2) CKD (chronic kidney disease) Assessment/Plan: -at baseline Code(s): N18.9 - CHRONIC KIDNEY DISEASE, UNSPECIFIED (3) Gout Assessment/Plan: -continue allopurinol Code(s): M10.9 - GOUT, UNSPECIFIED Qualifiers: Gout site: knee Gout etiology: unspecified cause Chronicity: acute Laterality: right Qualified Code(s): M10.9 - Gout, unspecified; M10.9 - Gout, unspecified (4) HTN (hypertension) Assessment/Plan: -continue amlodipine and valsartan Code(s): I10 - ESSENTIAL (PRIMARY) HYPERTENSION (5) Pulmonary embolism Assessment/Plan: -continue eliquis Code(s): I26.99 - OTHER PULMONARY EMBOLISM WITHOUT ACUTE COR PULMONALE Qualifiers: Pulmonary embolism type: other Chronicity: chronic Acute cor pulmonale presence: without acute cor pulmonale Qualified Code(s): I27.82 - Chronic pulmonary embolism; I27.82 - Chronic pulmonary embolism; I27.82 - Chronic pulmonary embolism; I27.82 - Chronic pulmonary embolism
[2017-07-16] MEDS ORDERED: SODIUM CHLORIDE 1,000 ML IV SCH (14:30)
--- NOTE | 2017-07-16 15:41 | CON.CARD ---
Cardiology Consult (text) - Consultation Consultation Note: CC: presyncope 67 yo with history of R breast Cancer s/p chemo/xrt, HTN, HL, PE on eliquis, CKD who presents with presyncope States she was sitting at her desk at work when she became overwhelmed by a sensation of lightheadedness that felt like she was going to pass out. Symptoms lasted for a few minutes and resolved on their own. No recurrence. States mainly sensation of lightheadedness but did feel a sense of disequilibrium which had vertigo like quality. Has had similar symptoms in the past but not as severe. No sob, orthopnea, pnd, le edema, claudication, bleeding or transient neurologic symptoms. No recent viral illness, f/c/s, n/v/d, rashes, visual disturbances cough. States she often skips meals, but orthostatics in ER were negative. - Past Medical History Cardiovascular: Yes: HTN Pulmonary: Yes: Other Heme/Onc: Yes: Sickle Cell Trait, Other (DVT/PE) Musculoskeletal: Yes: Other Rheumatology: Yes: Gout - Past Surgical History Past Surgical History: Yes: Social hx: Never smoked, Social etoh fam hx: no h/o cad. ROS: Per hpi Ambulatory Orders Allopurinol [Zyloprim -] 100 mg PO HS 06/14/16 Atorvastatin Calcium 20 mg PO HS 06/14/16 Valsartan [Diovan] 80 mg PO BID 06/14/16 Amlodipine Besylate 5 mg PO DAILY 11/21/16 Apixaban [Eliquis -] 2.5 mg PO BID #0 12/06/16 Prednisone 5 mg PO ASDIR PRN 01/09/17 Acetaminophen [Tylenol] 650 mg PO TID PRN #20 tablet 01/14/17 Current Medications Acetaminophen (Tylenol -) 650 mg PO Q4H PRN PRN Reason: FEVER OR PAIN Allopurinol (Zyloprim -) 100 mg PO HS BERNICE Amlodipine Besylate (Norvasc -) 10 mg PO DAILY BERNICE Apixaban (Eliquis -) 2.5 mg PO BID BERNICE Atorvastatin Calcium (Lipitor -) 20 mg PO HS BERNICE Sodium Chloride (Normal Saline -) 1,000 mls @ 50 mls/hr IV ASDIR BERNICE Stop: 07/17/17 14:23 Valsartan (Diovan -) 80 mg PO BID BERNICE Vital Signs - 24 hr 07/16/17 07/16/17 07/16/17 10:29 11:29 13:30 Temperature 97.6 F 97.9 F Pulse Rate 77 Pulse Rate [ 74 Apical] Pulse Rate [ 74 Left side Sitting] Pulse Rate [ 78 Left side Standing] Pulse Rate [ 62 Left side Supine] Respiratory 20 16 Rate Blood Pressure 153/82 Blood Pressure 134/72 [Left Arm] Blood Pressure 137/83 [Left side Sitting] Blood Pressure 145/73 [Left side Standing] Blood Pressure 130/70 [Left side Supine] O2 Sat by Pulse 100 97 Oximetry (%) Intake & Output 07/14/17 07/15/17 07/16/17 07/17/17 07:59 07:59 07:59 07:59 Weight 189 lb NAD, calm dry mouth JVD flat, neck supple CTAB, nl effort rrr nl s1, s2 no mrg + bs soft nt nd ext without e/c/d + dp/pt aaox3 CBC, BMP 07/16/17 12:00 07/16/17 12:00 Laboratory Tests 07/16/17 07/16/17 07/16/17 12:00 16:41 21:20 D-Dimer < 200 Troponin I < 0.02 < 0.02 EKG: nsr, nl axis/intervals. no ST T wave changes, similar to prior MPI 12/04: 4:30 min; no STs; no ischemia; nl EF Echo 10/06: nl LV/EF; RV tds; mild MR/TR HOlter 01/06: NSR; rare APCs/PVCs; brief PSVT (6b)--pt says one time palpitations then were skipped beat (not racing/fluttering). 67 yo with history of R breast Cancer s/p chemo/xrt, HTN, HL, PE on eliquis, CKD who presents with presyncope presyncope - carotid u/s, echo pending - s/p IVF (recent poor po intake). However, orthostatics in ER negative. - EKG wnl and ce's neg x 2 - telemetery monitoring htn - reasonable control, con't home regimen h/o PE - d-dimer negative, con't eliquis
[2017-07-16 16:39] LABS: URINE LEUK ESTERASE Negative (NEGATIVE)
[2017-07-16] MEDS: APIXABAN 2.5 MG TABLET PO SCH (21:10)
[2017-07-16] MEDS: VALSARTAN 80 MG TABLET (UD) PO SCH (21:10)
[2017-07-16] MEDS ORDERED: ALLOPURINOL 100 MG TABLET (FP) PO SCH (22:00)
[2017-07-16] MEDS ORDERED: ATORVASTATIN CA 20 MG TABLET (FP) PO SCH (22:00)
[2017-07-16 22:17] LABS: CPK 87 IU/L (26-192); TROPONIN I < 0.02 ng/ml (0.00-0.05)
[2017-07-17 06:26] LABS: EOSINOPHIL 3.7 % (0-4.5); MCH 31.1 pg (25.7-33.7); MEAN CELL VOLUME 91.5 fl (80-96); MEAN PLT VOLUME 8.1 fl (7.5-11.1); NEUTROPHILS 41.6 % (42.8-82.8); PLATELET COUNT 214 K/MM3 (134-434); RDW 14.8 % (11.6-15.6); WHITE BLOOD COUNT 4.7 K/mm3 (4.0-10.0)
[2017-07-17 06:49] LABS: ANION GAP 9 (8-16); CALCIUM 8.7 mg/dL (8.5-10.1); CO2 25 mmol/L (21-32); CREATININE 1.1 mg/dL (0.55-1.02); GLUCOSE,RANDOM 90 mg/dL (74-106); PHOSPHOROUS 3.1 mg/dL (2.5-4.9)
[2017-07-17 07:20] LABS: CPK 75 IU/L (26-192); TROPONIN I < 0.02 ng/ml (0.00-0.05)
[2017-07-17] MEDS: VALSARTAN 80 MG TABLET (UD) PO SCH (09:42)
[2017-07-17] MEDS: APIXABAN 2.5 MG TABLET PO SCH (09:43)
[2017-07-17 09:44] VITALS: BP 127/59; PULSE 78; TEMP 98.8
[2017-07-17] MEDS ORDERED: amLODIPine BESYLATE 5 MG TABLET (FP) PO SCH (10:00)
--- NOTE | 2017-07-17 10:08 | PN ---
Progress Note (short form) - Note Progress Note: s: no cp sob palps dizzy o: Vital Signs Period Temp Pulse Resp BP Sys/Meneses Pulse Ox Last 24 Hr 97.6 F-98.8 F 62-78 16-20 124-153/59-83 97-100 NAD, calm JVD flat, neck supple CTAB, nl effort rrr nl s1, s2 no mrg + bs soft nt nd ext without e/c/d aaox3 Current Medications Generic Name Dose Route Start Last Admin Trade Name Freq PRN Reason Stop Dose Admin Acetaminophen 650 mg 07/16/17 14:21 Tylenol - PO Q4H PRN FEVER OR PAIN Allopurinol 100 mg 07/16/17 22:00 07/16/17 21:10 Zyloprim - PO 100 mg HS BERNICE Administration Amlodipine Besylate 10 mg 07/17/17 10:00 07/17/17 09:42 Norvasc - PO 10 mg DAILY BERNICE Administration Apixaban 2.5 mg 07/16/17 22:00 07/17/17 09:43 Eliquis - PO 2.5 mg BID BERNICE Administration Atorvastatin Calcium 20 mg 07/16/17 22:00 07/16/17 21:10 Lipitor - PO 20 mg HS BERNICE Administration Sodium Chloride 1,000 mls @ 50 mls/hr 07/16/17 14:30 07/16/17 18:07 Normal Saline - IV 07/17/17 14:23 50 mls/hr ASDIR BERNICE Administration Valsartan 80 mg 07/16/17 22:00 07/17/17 09:42 Diovan - PO 80 mg BID BERNICE Administration CBC, BMP 07/17/17 05:35 07/17/17 05:35 EKG: nsr, nl axis/intervals. no ST T wave changes, similar to prior MPI 12/04: 4:30 min; no STs; no ischemia; nl EF Echo 10/06: nl LV/EF; RV tds; mild MR/TR echo 06/2017: nl lv, rv tds, nl rvsp, no sig valve path carotids 06/2017: mild dz, no sig stenosis tele: sr Holter 01/06: NSR; rare APCs/PVCs; brief PSVT (6b)--pt says one time palpitations then were skipped beat (not racing/fluttering). a/p: 67 yo with history of R breast Cancer s/p chemo/xrt, HTN, HL, PE on eliquis , CKD who presents with presyncope presyncope - carotid u/s, echo, tele, all unremarkable - s/p IVF (recent poor po intake). Orthostatics in ER negative. - EKG wnl and ce's neg - no signs of cardiac etiology. can consider outpt event monitor if sxs recur. htn - reasonable control, con't home regimen h/o PE - d-dimer negative, con't eliquis cardiac caballero stable for dc
--- NOTE | 2017-07-17 10:43 | EKG ---
Test Reason : Blood Pressure : / mmHG Vent. Rate : 066 BPM Atrial Rate : 066 BPM P-R Int : 168 ms QRS Dur : 084 ms QT Int : 400 ms P-R-T Axes : 053 023 039 degrees QTc Int : 419 ms NORMAL SINUS RHYTHM NORMAL ECG WHEN COMPARED WITH ECG OF 09-JAN-2017 10:18, NO SIGNIFICANT CHANGE WAS FOUND Confirmed by BALAJI BROWN MD ([id number]) on 07/17/2017 10:43:00 AM Referred By: Confirmed By:BALAJI BROWN MD
--- NOTE | 2017-07-17 12:07 | DS ---
Physical Examination Vital Signs: Vital Signs Temperature 37.1 C 07/17/17 09:43 Pulse Rate 78 07/17/17 09:43 Respiratory Rate 16 07/17/17 09:43 Blood Pressure 127/59 07/17/17 09:43 O2 Sat by Pulse Oximetry (%) 100 07/17/17 01:00 Constitutional: Yes: Well Nourished, No Distress, Calm Cardiovascular: Yes: Regular Rate and Rhythm. No: Gallop, Murmur, Rub Respiratory: Yes: Regular, CTA Bilaterally. No: Rales, Rhonchi, Wheezes Gastrointestinal: Yes: Normal Bowel Sounds, Soft. No: Distention, Tenderness Extremities: Yes: WNL Edema: No Labs: CBC, BMP 07/17/17 05:35 07/17/17 05:35 Discharge Summary Reason For Visit: LIGHTHEADEDNESS,DYSPNEA Current Active Problems Dyspnea (Acute) Near syncope (Acute) Hospital Course: Ms Castillo is a very pleasant 67 year old female who comes in with presyncope. She was admitted to telemetry for observation. She had an EKG that was normal. Her d-dimer was normal as well. Carotid ultrasound was performed and normal, ECHO was performed and normal. She was seen by cardiology and cleared. She is safe for discharge home. Condition: Good - Instructions Diet, Activity, Other Instructions: resume previous diet and activity. Resume previous medication regimen without change. Referrals: Christian Dominguez MD [Primary Care Provider] - Brennan Crowell MD [Staff Physician] - Disposition: HOME - Home Medications Comprehensive Discharge Medication List: Ambulatory Orders Allopurinol [Zyloprim -] 100 mg PO HS 06/14/16 Atorvastatin Calcium 20 mg PO HS 06/14/16 Valsartan [Diovan] 80 mg PO BID 06/14/16 Apixaban [Eliquis -] 2.5 mg PO BID #0 12/06/16 Prednisone 5 mg PO ASDIR PRN 01/09/17 Acetaminophen [Tylenol] 650 mg PO TID PRN #20 tablet 01/14/17 Amlodipine Besylate 10 mg PO DAILY #0 tablet 07/17/17
== END 2017-07-17 13:33 | disposition home or self-care (01) ==
LOC: JER 10:28 → JERBED 13:31 → J4S 17:17
PROVIDERS: ADMIT Internal Medicine; ATTEND Internal Medicine
PROC: 3E0337Z Introduction of Electrolytic and Water Balance Substance into Peripheral Vein, Percutaneous Approach (ICD-10-PCS; principal; 2017-07-16)
DX: R55 Syncope and collapse (principal); I12.9 Hypertensive chronic kidney disease with stage 1 through stage 4 chronic kidney disease, or unspecified chronic kidney disease; N18.9 Chronic kidney disease, unspecified; R06.00 Dyspnea, unspecified; I27.82 Chronic pulmonary embolism; Z79.01 Long term (current) use of anticoagulants; E78.5 Hyperlipidemia, unspecified; M10.9 Gout, unspecified; Z85.3 Personal history of malignant neoplasm of breast; Z92.3 Personal history of irradiation; Z88.8 Allergy status to other drugs, medicaments and biological substances
CPT/HCPCS: 36415; 70450-TC; 71010-TC; 80048; 80053; 81003; 82550; 83735; 84100; 84484; 85025; 85379; 93005; 93010; 93306-TC; 93880-TC; 99285-25; G0378

== ENCOUNTER 2018-02-28 15:20 | Emergency (ER) | payer BC, OTHER ==
--- NOTE | 2018-02-28 15:23 | PDOC ---
History of Present Illness - General History Source: Patient Exam Limitations: No Limitations - History of Present Illness Initial Comments: 02/28/18 15:55 The patient is a 68 year old female with a significant PMH of pulmonary embolism on 09/2014 (on eliquis, positive lupus anticoagulant), HTN, HLD, right breast cancer (s/p chemo, radiation, and lumpectomy, now in full remission since last year) who presents to the emergency department with lightheadedness and associated headache since 8:30AM yesterday. The patient states she becomes lightheaded on occasion but resolves on its own. The patient states this is the first time she noticed a headache associated with the lightheadedness. The patient describes the headache as a sudden onset, throbbing sensation that began on the left side of her head. The patient reports she was at work during the onset of the headache and waited at her desk for the lightheadedness to subside as she "felt that she was going to pass out." The patient states the headache is now diffuse and intermittent. The patient declines any pain medications for the headache. The patient also endorses occasional unsteady gait over the past month. The patient denies neck pain, chest pain, palpitations, shortness of breath, loss of vision, double vision, difficulty speaking, or difficulty swallowing. Denies fever, chills, nausea, vomit. Allergies: colchicine Past surgical history: lumpectomy for R breast cancer last year Current meds: Allopurinol, Atorvastatin, Valsartan, Eliquis, Amlodipine Social history: Drinks EtOH socially. No reported drug or cigarette use. PCP: Dr. Dominguez. <Daria Livingston - Last Filed: 02/28/18 17:34> <Karlo Byrnes - Last Filed: 02/28/18 17:39> - General Chief Complaint: Headache Stated Complaint: HEADACHE Time Seen by Provider: 02/28/18 15:23 Past History <Daria Livingston - Last Filed: 02/28/18 17:34> - Past Medical History Anemia: No Asthma: No Cancer: Yes (RIGHT BREAST 04/10/16) Cardiac Disorders: No CVA: No COPD: No (PE 09/2014) CHF: No Dementia: No Diabetes: No GI Disorders: No Disorders: No HTN: Yes Hypercholesterolemia: Yes Liver Disease: No Seizures: No Thyroid Disease: No - Surgical History Abdominal Surgery: No Appendectomy: No Cardiac Surgery: No Cholecystectomy: No Lung Surgery: No Neurologic Surgery: No Orthopedic Surgery: No - Suicide/Smoking/Psychosocial Hx Smoking History: Never smoked Have you smoked in the past 12 months: No Hx Alcohol Use: Yes (SOCIAL) Drug/Substance Use Hx: No Substance Use Type: None Hx Substance Use Treatment: No <Karlo Byrnes - Last Filed: 02/28/18 17:39> - Past Medical History Allergies/Adverse Reactions: Allergies Allergy/AdvReac Type Severity Reaction Status Date / Time colchicine Allergy Intermediate Hives Verified 02/28/18 15:21 Home Medications: Ambulatory Orders Allopurinol [Zyloprim -] 100 mg PO HS 06/14/16 Atorvastatin Calcium 20 mg PO HS 06/14/16 Valsartan [Diovan] 80 mg PO DAILY 06/14/16 Apixaban [Eliquis -] 2.5 mg PO BID #0 12/06/16 Amlodipine Besylate 5 mg PO DAILY 02/28/18 Review of Systems - Review of Systems Able to Perform ROS?: Yes Comments:: 02/28/18 16:10 CONSTITUTIONAL: Absent: Fever, Chills, Diaphoresis, Generalized Weakness, Malaise, Loss of Appetite HEENT: Absent: Rhinorrhea, Nasal Congestion, Throat Pain, Throat Swelling, Difficulty Swallowing, Mouth Swelling, Ear Pain, Eye Pain, Visual Changes CARDIOVASCULAR: Absent: Chest Pain, Syncope, Palpitations, Irregular Heart Rate, Lightheadedness , Peripheral Edema RESPIRATORY: Absent: Cough, Shortness of Breath, SOB with Exertion, Orthopnea, Wheezing, Stridor, Hemoptysis GASTROINTESTINAL: Absent: Abdominal pain, Abdominal Distension, Nausea, Vomiting, Diarrhea, Constipation, Melena, Hematochezia GENITOURINARY: Absent: Dysuria, Frequency, Urgency, Hesitancy, Flank Pain, Genital Pain MUSCULOSKELETAL: Absent: Myalgia, Arthralgia, Joint Swelling, Back pain, Neck Pain SKIN: Absent: Rash, Itching, Pallor HEMEATOLOGIC/IMMUNOLOGIC: Absent: Easy Bleeding, Easy Bruising, Lymphadenopathy, Frequent infections ENDOCRINE: Absent: Unexplained Weight Gain, Unexplained Weight Loss, Heat Intolerance, Cold Intolerance NEUROLOGIC: Absent: Focal Weakness, Paresthesias, Vertigo, Seizure, Mental Status Changes, Incontinence Present: Headache. Unsteady gait. Lightheadedness. PSYCHIATRIC: Absent: Anxiety, Depression <Daria Livingston - Last Filed: 02/28/18 17:34> *Physical Exam - Vital Signs Last Vital Signs Temp Pulse Resp BP Pulse Ox 98.1 F 75 18 138/68 100 02/28/18 15:20 02/28/18 15:20 02/28/18 15:20 02/28/18 15:20 02/28/18 15:20 - Physical Exam Comments: 02/28/18 16:11 GENERAL: The patient is awake, alert, and fully oriented, in no acute distress. HEAD: Normal with no signs of trauma. EYES: Pupils equal, round and reactive to light, extraocular movements intact, sclera anicteric, conjunctiva clear. ENT: Ears normal, nares patent, oropharynx clear without exudates. Moist mucous membranes. NECK: Normal range of motion, supple without lymphadenopathy, JVD, or masses. LUNGS: Breath sounds equal, clear to auscultation bilaterally. No wheezes, and no crackles. HEART: Regular rate and rhythm, normal S1 and S2 without murmur, rub or gallop. ABDOMEN: Soft, nontender, normoactive bowel sounds. No guarding, no rebound. No masses. EXTREMITIES: Normal range of motion, no edema. No clubbing or cyanosis. No cords , erythema, or tenderness. NEURO: Mental status: The patient is oriented x3. Cranial nerves: Cranial nerves II through XII are intact Motor: The upper extremities are 5 over 5 in all muscle groups. The lower extremities are 5 over 5 in all muscle groups. Sensation: Sensation is intact to light touch throughout. Cerebellar: Lzwaud-vxzazl-pkkl is normal in both upper extremities. Heel-knee- tiwari is normal in both lower extremities. Reflexes: 2+ and symmetric in the upper and lower extremities. Gait: Normal. Heel and toe walking are normal. Tandem gait is normal. PSYCH: Normal mood, normal affect. SKIN: Warm, Dry, normal turgor, no rashes or lesions noted. <Daria Livingston - Last Filed: 02/28/18 17:34> Medical Decision Making - Medical Decision Making 02/28/18 17:34 Imaging: Head CT Reported by: Dr. Ditzenberger No intra- or extra-axial hemorrhage or collection. No mass lesion or midline shift. The ventricles are of normal size for age and are midline in position. Normal suarez-white matter differentiation. The calvarium is intact. The visualized paranasal sinuses and mastoid air cells are clear. <Daria Livingston - Last Filed: 02/28/18 17:34> - Medical Decision Making 02/28/18 17:35 68-year-old female on Eliquis for a past history of positive lupus anticoagulant and pulmonary embolism. She was doing well until yesterday when she was sitting at her desk at work. She experienced a sudden onset left-sided headache which was strong upon onset. Since that time she has had some mild discomfort in her head which is varying from the right side to the left side from the front to the back. Currently she has minimal to no headache. There is no neck pain, no photophobia, no nausea, no vomiting, no speech change, no difficulty swallowing, and no other neurological symptoms. Examination is notable for the absence of any abnormal neurological findings on detailed exam. The neck is supple without meningismus. The patient's mental status is sharp. CT scan of the head shows no abnormalities. Reassessment of the patient is asymptomatic without any significant headache. Given the normal neurological exam, the normal head CT, and the resolution of the headache, suspicion for subarachnoid hemorrhage or stroke is extremely low. Patient will follow-up with her primary care physician. She is stable for discharge. She declined any medications given that her symptoms are minimal. <Karlo Byrnes - Last Filed: 02/28/18 17:39> *DC/Admit/Observation/Transfer - Attestations Scribe Attestion: 02/28/18 16:13 Documentation prepared by Daria Livingston, acting as medical record transcriber for Karlo Byrnes MD. <Daria Livingston - Last Filed: 02/28/18 17:34> - Discharge Dispostion Decision to Admit order: No <Karlo Byrnes - Last Filed: 02/28/18 17:39> Diagnosis at time of Disposition: Headache Qualifiers: Headache type: unspecified Headache chronicity pattern: acute headache Intractability: not intractable Qualified Code(s): R51 - Headache - Discharge Dispostion Disposition: HOME Condition at time of disposition: Improved - Referrals Referrals: Christian Dominguez MD [Primary Care Provider] - - Patient Instructions Printed Discharge Instructions: DI for Headache Additional Instructions: Today you were evaluated for a headache. Your neurological examination was all normal. Your head CT scan was also normal. This is more likely a tension type headache. Take Tylenol if needed. Follow-up with your primary care physician this coming week. Return to the emergency department for any severe or progressive symptoms. - Post Discharge Activity
[2018-02-28 15:30] VITALS: BP 138/68; PULSE 75; TEMP 98.1; BMI 30.9
== END 2018-02-28 17:44 | disposition home or self-care (01) ==
LOC: FER 15:20
DX: R51 Headache (principal); D68.62 Lupus anticoagulant syndrome; Z86.711 Personal history of pulmonary embolism; Z79.01 Long term (current) use of anticoagulants
CPT/HCPCS: 70450-TC; 99283-25

== ENCOUNTER 2019-01-09 20:24 | Emergency (ER) | payer BC, OTHER ==
[2019-01-09 20:37] VITALS: BP 159/71; PULSE 84; TEMP 98.2; BMI 32.5
--- NOTE | 2019-01-09 21:10 | PDOC ---
History of Present Illness - General Chief Complaint: Rash Stated Complaint: RASH Time Seen by Provider: 01/09/19 20:56 History Source: Patient Exam Limitations: Clinical Condition - History of Present Illness Initial Comments: 01/09/19 21:23 Patient with no significant past medical history present with complaint of red itchy rash to bilateral upper extremity, abdomen and legs of unknown etiology which started suddenly yesterday. Patient reported she took Benadryl last night which the rash resolved but came back again today. Patient denies any change in soap, detergent or any new medication. Denies choking sensation, shortness of breath, lip swelling or tongue swelling. Denies any other symptoms Timing/Duration: reports: other (2 days) Past History - Past Medical History Allergies/Adverse Reactions: Allergies Allergy/AdvReac Type Severity Reaction Status Date / Time colchicine Allergy Intermediate Hives Verified 01/09/19 20:34 Home Medications: Ambulatory Orders Allopurinol [Zyloprim -] 100 mg PO HS 06/14/16 Atorvastatin Calcium 20 mg PO HS 06/14/16 Valsartan [Diovan] 80 mg PO DAILY 06/14/16 Apixaban [Eliquis -] 2.5 mg PO BID #0 12/06/16 Amlodipine Besylate 5 mg PO DAILY 02/28/18 Hydroxyzine HCl 25 mg PO Q8H PRN #20 tablet 01/09/19 Prednisone [Deltasone] 20 mg PO BID 5 Days #10 tablet 01/09/19 Anemia: No Asthma: No Cancer: Yes (RIGHT BREAST 04/10/16) Cardiac Disorders: No CVA: No COPD: No (PE 09/2014) CHF: No Dementia: No Diabetes: No GI Disorders: No Disorders: No HTN: Yes Hypercholesterolemia: Yes Liver Disease: No Seizures: No Thyroid Disease: No - Surgical History Abdominal Surgery: No Appendectomy: No Cardiac Surgery: No Cholecystectomy: No Lung Surgery: No Neurologic Surgery: No Orthopedic Surgery: No - Suicide/Smoking/Psychosocial Hx Smoking History: Never smoked Have you smoked in the past 12 months: No Hx Alcohol Use: Yes Drug/Substance Use Hx: No Substance Use Type: None Hx Substance Use Treatment: No Review of Systems - Review of Systems Able to Perform ROS?: Yes Is the patient limited Luxembourgish proficient: No Constitutional: No: Malaise, Weakness HEENTM: No: Symptoms Reported Respiratory: No: Symptoms reported, See HPI, Cough, Orthopnea, Shortness of Breath, SOB with Exertion, SOB at Rest, Stridor, Wheezing, Productive cough, Hemoptysis, Other Cardiac (ROS): No: Symptoms Reported ABD/GI: No: Nausea, Vomiting Musculoskeletal: No: Symptoms Reported Integumentary: Yes: Symptoms Reported, See HPI, Pruritus, Rash All Other Systems: Reviewed and Negative *Physical Exam - Vital Signs Last Vital Signs Temp Pulse Resp BP Pulse Ox 98.2 F 84 14 159/71 100 01/09/19 20:31 01/09/19 20:31 01/09/19 20:31 01/09/19 20:31 01/09/19 20:31 - Physical Exam Comments: 01/09/19 21:26 GENERAL: Well developed, well nourished. Awake and alert. No acute distress. HEENT: Normocephalic, atraumatic. PERRLA, EOMI. No conjunctival pallor. Sclera are non-icteric. Moist mucous membranes. Oropharynx is clear. NECK: Supple. Full ROM. CARDIOVASCULAR: Regular rate and rhythm. No murmurs, rubs, or gallops. Distal pulses are 2+ and symmetric. PULMONARY: No evidence of respiratory distress. Lungs clear to auscultation bilaterally. No wheezing, rales or rhonchi. MUSCULOSKELETAL Normal range of motion at all joints. SKIN: Warm and dry. Normal capillary refill. Multiple urticarial rash to bilateral upper and lower extremity without excoriations. NEUROLOGICAL: Alert, awake, appropriate. Gait is normal without ataxia. PSYCHIATRIC: Cooperative. Good eye contact. Appropriate mood General Appearance: Yes: Nourished, Appropriately Dressed. No: Apparent Distress Medical Decision Making - Medical Decision Making 01/09/19 21:25 Patient with no significant past medical history present with complaint of red itchy rash to bilateral upper extremity, abdomen and legs of unknown etiology which started suddenly yesterday. Patient reported she took Benadryl last night which the rash resolved but came back again today. Patient denies any change in soap, detergent or any new medication. Denies choking sensation, shortness of breath, lip swelling or tongue swelling. Denies any other symptoms Exam significant for multiple areas of urticarial rash to bilateral upper extremity and lower extremity without excoriations. Symptoms likely ALLERGIC dermatitis. Patient stable for outpatient management on oral prednisone and hydroxyzine with dermatology follow-up as needed. *DC/Admit/Observation/Transfer Diagnosis at time of Disposition: Allergic dermatitis - Discharge Dispostion Disposition: HOME Condition at time of disposition: Stable Decision to Admit order: No - Prescriptions Prescriptions: Hydroxyzine HCl 25 mg PO Q8H PRN #20 tablet PRN Reason: itching Prednisone [Deltasone] 20 mg PO BID 5 Days #10 tablet - Referrals Referrals: Hoa Leahy MD [Staff Physician] - - Patient Instructions Printed Discharge Instructions: DI for General Allergic Reactions Additional Instructions: Take medications as prescribed. Apply home steriod cream as needed for rash. Follow-up with referred dermatology if no improvement in 3 days - Post Discharge Activity
== END 2019-01-09 21:17 | disposition home or self-care (01) ==
LOC: JER 20:24 → JERFT 20:24
DX: L23.9 Allergic contact dermatitis, unspecified cause (principal); I10 Essential (primary) hypertension; E78.00 Pure hypercholesterolemia, unspecified; Z86.711 Personal history of pulmonary embolism; Z85.3 Personal history of malignant neoplasm of breast
CPT/HCPCS: 99281-25

== ENCOUNTER 2019-03-02 07:01 | Day surgery (SDC) | payer BC, OTHER | END 2019-03-02 09:28 | disposition home or self-care (01) | LOC: JASU-ENDO 07:01 ==

== ENCOUNTER 2019-10-26 10:45 | Observation (INO) | payer BC, OTHER ==
--- NOTE | 2019-10-26 13:01 | PDOC ---
History of Present Illness - General Chief Complaint: Lightheaded Stated Complaint: DIZZINESS Time Seen by Provider: 10/26/19 12:04 - History of Present Illness Initial Comments: 10/26/19 13:03 69y/o F with hx of pulmonary embolism, HTN, HLD, Breast Ca( right side) s/p radiation and lumpectomy, lupus presents to the ED after experiencing lightheadedness at work at around 9:30 a.m. She was sitting at her desk at work when she began to feel lightheaded, and she would lose her balance if she stood up. Lightheadedness persisted for about an hour. she was brought to the ED via eMs.This has happened to her in the past. She reports having a workup by neurologist which yielded no findings after being seen here in this ER for similiar complaint. Head CT in 2018 showed no acutre intracranial pthology. She denies any headache, nausea, vomiting, fevers, abdominal pain, diarrhea, bloody/ tarry stools. 10/26/19 13:08 Past History - Past Medical History Allergies/Adverse Reactions: Allergies Allergy/AdvReac Type Severity Reaction Status Date / Time colchicine Allergy Intermediate Hives Verified 10/26/19 11:18 Home Medications: Ambulatory Orders Allopurinol [Zyloprim -] 100 mg PO HS 06/14/16 Atorvastatin Calcium 20 mg PO HS 06/14/16 Apixaban [Eliquis -] 2.5 mg PO BID #0 12/06/16 Amlodipine Besylate 5 mg PO HS 02/28/18 Cholecalciferol (Vitamin D3) [Vitamin D3] 1 cap PO ASDIR 03/01/19 Losartan Potassium 50 mg PO DAILY 10/26/19 Anemia: No Asthma: No Cancer: Yes (RIGHT BREAST 04/10/16) Cardiac Disorders: No CVA: No COPD: No (PE 09/2014) CHF: No Dementia: No Diabetes: No GI Disorders: No Disorders: No HTN: Yes Hypercholesterolemia: Yes Liver Disease: No Seizures: No Thyroid Disease: No - Surgical History Abdominal Surgery: No Appendectomy: No Cardiac Surgery: No Cholecystectomy: No Lung Surgery: No Neurologic Surgery: No Orthopedic Surgery: No (BILATERAL KNEE REPLACEMENT) - Psycho Social/Smoking Cessation Hx Smoking History: Never smoked Have you smoked in the past 12 months: No Information on smoking cessation initiated: No Hx Alcohol Use: No Drug/Substance Use Hx: No Substance Use Type: None Hx Substance Use Treatment: No *Physical Exam - Vital Signs Last Vital Signs Temp Pulse Resp BP Pulse Ox 97.6 F 72 20 150/72 99 10/26/19 11:15 10/26/19 11:15 10/26/19 11:15 10/26/19 11:15 10/26/19 11:15 - Physical Exam 10/26/19 13:07 GENERAL: Awake, alert, and fully oriented, in no acute distress HEAD: No signs of trauma, normocephalic, atraumatic EYES: EOMI, sclera anicteric, conjunctiva clear ENT: Auricles normal inspection, hearing grossly normal, nares patent, oropharynx clear without exudates. Moist mucosa NECK: Normal ROM, supple, no lymphadenopathy, JVD, or masses LUNGS: No distress, speaks full sentences, clear to auscultation bilaterally HEART: Regular rate and rhythm, normal S1 and S2, no murmurs, rubs or gallops, peripheral pulses normal and equal bilaterally. ABDOMEN: Soft, nontender, normoactive bowel sounds. No guarding, no rebound. No masses EXTREMITIES : Normal inspection, Normal range of motion, No clubbing or cyanosis NEUROLOGICAL: Cranial nerves II through XII grossly intact. Normal speech, no focal sensorimotor deficits SKIN: Warm, Dry, normal turgor, no rashes or lesions noted ED Treatment Course - LABORATORY CBC & Chemistry Diagram: 10/26/19 13:15 10/26/19 13:15 Medical Decision Making - Medical Decision Making 10/26/19 13:13 69y/o F with hx of pulmonary embolism, HTN, HLD, Breast Ca( right side) s/p radiation and lumpectomy, lupus presents to the ED after experiencing lightheadedness at work at around 9:30 a.m workup cbc, cmp, ekg, ua, troponin, cardiac profile. 10/26/19 13:14 10/26/19 13:17 nsr, normal ekg. Discharge - Discharge Information Problems reviewed: Yes Clinical Impression/Diagnosis: Lightheadedness Condition: Improved Disposition: HOME - Follow up/Referral - Patient Discharge Instructions - Post Discharge Activity
--- NOTE | 2019-10-26 13:13 | EKG ---
Test Reason : Blood Pressure : / mmHG Vent. Rate : 068 BPM Atrial Rate : 068 BPM P-R Int : 162 ms QRS Dur : 080 ms QT Int : 386 ms P-R-T Axes : 050 032 048 degrees QTc Int : 410 ms NORMAL SINUS RHYTHM NORMAL ECG WHEN COMPARED WITH ECG OF 26-JAN-2019 15:48, NO SIGNIFICANT CHANGE WAS FOUND Confirmed by MD ASHLEY PENG ([id number]) on 10/26/2019 1:13:34 PM Referred By: Confirmed By:DIALLO ASHLEY MD
[2019-10-26 14:14] LABS: EOS % 0.9 % (0-4.5); HEMATOCRIT 35.7 % (32.4-45.2); HEMOGLOBIN 11.8 GM/dL (10.7-15.3); LYMPH % 42.3 % (8-40); MCH 30.7 pg (25.7-33.7); MEAN CELL VOLUME 92.8 fl (80-96); MEAN PLT VOLUME 8.6 fl (7.5-11.1); MONO % 9.6 % (3.8-10.2); NEUT % 46.2 % (42.8-82.8); PLATELET COUNT 216 K/MM3 (134-434); RBC 3.84 M/mm3 (3.60-5.2); RDW 14.1 % (11.6-15.6); WHITE BLOOD COUNT 4.6 K/mm3 (4.0-10.0)
[2019-10-26 14:39] LABS: ALBUMIN 3.7 g/dl (3.4-5.0); ALK PHOS 53 U/L (45-117); ANION GAP 3 MMOL/L (8-16); BLOOD UREA NITROGEN 17.1 mg/dL (7-18); CHLORIDE 106 mmol/L (98-107); CO2 28 mmol/L (21-32); CREATININE 1.2 mg/dL (0.55-1.3); GLUCOSE,RANDOM 84 mg/dL (74-106); POTASSIUM 5.1 mmol/L (3.5-5.1); SGOT/AST 25 U/L (15-37); SGPT/ALT 21 U/L (13-61); SODIUM 138 mmol/L (136-145); TOT PROT 7.8 g/dl (6.4-8.2)
[2019-10-26 14:43] LABS: EPI CELLS 4.1 /HPF (0-5/HPF); HYALINE CASTS 2 /lpf (0-8); URINE APPEARANCE CLEAR; URINE BILIRUBIN NEGATIVE (NEGATIVE); URINE COLOR YELLOW; URINE GLUCOSE (UA) NEGATIVE (NEGATIVE); URINE KETONE NEGATIVE (NEGATIVE); URINE LEUK ESTERASE NEGATIVE (NEGATIVE); URINE NITRITE NEGATIVE (NEGATIVE); URINE PROTEIN 1+ (NEGATIVE); URINE RBC 1 /hpf (0-4); URINE UROBILINOGEN 0.2 mg/dL (0.2-1.0); URINE WBC 1 /hpf (0-5)
--- NOTE | 2019-10-26 17:06 | HP ---
CHIEF COMPLAINT: lightheaded/dizziness at work PCP: Dr. Dominguez PCP Dr. Crowell, cardiology HISTORY OF PRESENT ILLNESS: Patient is a 69 year old female with a significant past medical history of pulmonary embolism on 09/2014 (on eliquis, positive lupus anticoagulant), hypertension, hyperlipidemia, right breast cancer (s/p chemo, radiation, and lumpectomy, now in full remission) and right arm lymphedema. Patient presents to the ED with feelings of lightheadedness at work at around 9:30 a.m. She was sitting at her desk at work when she began to feel lightheaded, and she would lose her balance if she stood up. Lightheadedness persisted for about an hour and nothing made it better. She denies any headaches during episode of lightheadedness and denies any nausea/vomiting. The lightheadedness has happened to her in the past. She reports having a workup by neurologist which yielded no findings. Head CT in the ED shows no acute pathology. She denies any headache, nausea, vomiting, fevers, abdominal pain, diarrhea, bloody/tarry stools. She denies chest pain or shortness of breath. ER course was notable for: (1) head ct: negative for acute pathology (2) troponin negative x 1 (3) Recent Travel: denies PAST MEDICAL/SURGICAL HISTORY: pulmonary embolism on 09/2014 (on eliquis, positive lupus anticoagulant), hypertension, hyperlipidemia, right breast cancer (s/p chemo, radiation, and lumpectomy, now in full remission) and right arm lymphedema. Social History: Smoking: denies Alcohol: occasionally Drugs: denies Allergies colchicine Allergy (Intermediate, Verified 10/26/19 11:18) Hives HOME MEDICATIONS: Home Medications Medication Instructions Recorded Allopurinol [Zyloprim -] 100 mg PO HS 06/14/16 Atorvastatin Calcium 20 mg PO HS 06/14/16 Apixaban [Eliquis -] 2.5 mg PO BID #0 12/06/16 Amlodipine Besylate 5 mg PO HS 02/28/18 Cholecalciferol (Vitamin D3) 1 cap PO ASDIR 03/01/19 [Vitamin D3] Losartan Potassium 50 mg PO DAILY 10/26/19 PHYSICAL EXAMINATION Vital Signs - 24 hr 10/26/19 10/26/19 10/26/19 10:53 11:15 16:47 Temperature 97.6 F 98.0 F Pulse Rate [ 72 66 Apical] Respiratory 20 20 20 Rate Blood Pressure 148/69 Blood Pressure 150/72 132/71 [Left Arm] O2 Sat by Pulse 99 100 Oximetry (%) GENERAL: Awake, alert, and fully oriented, in no acute distress. HEAD: Normal with no signs of trauma. EYES: Pupils equal, round and reactive to light, extraocular movements intact, sclera anicteric, conjunctiva clear. No lid lag. EARS, NOSE, THROAT: Ears normal, nares patent, oropharynx clear without exudates. Moist mucous membranes. NECK: Normal range of motion, supple without lymphadenopathy, JVD, or masses. LUNGS: Breath sounds equal, clear to auscultation bilaterally. HEART: Regular rate and rhythm ABDOMEN: Soft, nontender, not distended, normoactive bowel sounds, no guarding, no rebound, no masses. No hepatomegaly or splenomegaly. MUSCULOSKELETAL: Normal range of motion at all joints. No bony deformities or tenderness. No CVA tenderness. UPPER EXTREMITIES: right arm non pitting edema, has hx of lymphedema LOWER EXTREMITIES: No peripheral edema. NEUROLOGICAL: Normal speech. Normal gait. PSYCHIATRIC: Cooperative. Good eye contact. Appropriate mood and affect. SKIN: Warm, dry, normal turgor, no rashes or lesions noted, normal capillary refill. Laboratory Results - last 24 hr 10/26/19 10/26/19 10/26/19 13:15 13:15 14:00 WBC 4.6 RBC 3.84 Hgb 11.8 Hct 35.7 MCV 92.8 MCH 30.7 MCHC 33.0 RDW 14.1 Plt Count 216 MPV 8.6 Absolute Neuts (auto) 2.1 Neutrophils % 46.2 Lymphocytes % 42.3 H Monocytes % 9.6 Eosinophils % 0.9 Basophils % 1.0 Nucleated RBC % 0 Sodium 138 Potassium 5.1 Chloride 106 Carbon Dioxide 28 Anion Gap 3 L BUN 17.1 Creatinine 1.2 Est GFR (CKD-EPI)AfAm 53.78 Est GFR (CKD-EPI)NonAf 46.40 Random Glucose 84 Calcium 9.0 Total Bilirubin 1.0 AST 25 ALT 21 Alkaline Phosphatase 53 Creatine Kinase 106 Troponin I < 0.02 Total Protein 7.8 Albumin 3.7 Urine Color Yellow Urine Appearance Clear Urine pH 6.0 Ur Specific [place] 1.012 Urine Protein 1+ H Urine Glucose (UA) Negative Urine Ketones Negative Urine Blood Trace Urine Nitrite Negative Urine Bilirubin Negative Urine Urobilinogen 0.2 Ur Leukocyte Esterase Negative Urine WBC (Auto) 1 Urine RBC (Auto) 1 Urine Casts (Auto) 2 U Epithel Cells (Auto) 4.1 Urine Bacteria (Auto) 63.0 ASSESSMENT/PLAN: Problem List - Problem (1) Lightheadedness Assessment/Plan: monitor on tele ordered the following to further assess cause of lightheadness echo carotid dopplers physical therapy orthostatics [id number] lipid panel Code(s): R42 - DIZZINESS AND GIDDINESS (2) Near syncope Assessment/Plan: monitor on tele Code(s): R55 - SYNCOPE AND COLLAPSE (3) Benign positional vertigo Assessment/Plan: monitor on tele to rule out cardiac cause of vertigo Code(s): H81.10 - BENIGN PAROXYSMAL VERTIGO, UNSPECIFIED EAR (4) Breast cancer, right Assessment/Plan: follows with oncologist. in remission. Code(s): C50.911 - MALIGNANT NEOPLASM OF UNSP SITE OF RIGHT FEMALE BREAST Qualifiers: Breast location: upper outer quadrant of breast (5) HTN (hypertension) Assessment/Plan: controlled. continue meds Code(s): I10 - ESSENTIAL (PRIMARY) HYPERTENSION (6) Pulmonary embolism Assessment/Plan: on eliquis Code(s): I26.99 - OTHER PULMONARY EMBOLISM WITHOUT ACUTE COR PULMONALE Qualifiers: Pulmonary embolism type: other Chronicity: chronic Acute cor pulmonale presence: without acute cor pulmonale Qualified Code(s): I27.82 - Chronic pulmonary embolism (7) Obesity Assessment/Plan: outpatient follow up Code(s): E66.9 - OBESITY, UNSPECIFIED (8) Prophylactic measure Assessment/Plan: fen tolerating po monitor electrolytes low salt diet Code(s): Z29.9 - ENCOUNTER FOR PROPHYLACTIC MEASURES, UNSPECIFIED Visit type - Emergency Visit Emergency Visit: Yes ED Registration Date: 10/26/19 Care time: The patient presented to the Emergency Department on the above date and was hospitalized for further evaluation of their emergent condition. - New Patient This patient is new to me today: Yes Date on this admission: 10/26/19 - Critical Care Critical Care patient: No
--- NOTE | 2019-10-26 17:14 | PDOC ---
Documentation entered by Mike Craig SCRIBE, acting as scribe for Patricio Albarado MD. Patricio Albarado MD: This documentation has been prepared by the Rafa luis Daniel, SCRIBE, under my direction and personally reviewed by me in its entirety. I confirm that the documentation accurately reflects all work, treatment, procedures, and medical decision making performed by me. Attending Attestation - Resident Resident Name: Bernard Hernandez - ED Attending Attestation I have performed the following: I have examined & evaluated the patient, The case was reviewed & discussed with the resident, I agree w/resident's findings & plan, Exceptions are as noted - HPI HPI: 10/26/19 13:52 The patient is a 69 year old female with a past medical history of prior PE on eliquis, SLE, breast cancer on the right, HTN, HLD, and recurrent presyncopal episodes here today for evaluation of presyncope. The patient reports that she was at work at [employer] sitting at her desk when she felt a sudden lightheadedness like she was going to pass out. No LOC. She denies any loss of consciousness but states that this feeling lasted for about 1 hour. She states that her last presyncopal episode was 1 year ago. She has been evaluated by cardiology and neurology over a year ago with no findings on her work up. She reports compliance with her eliquis, states this does not feel like her previous PE. Patient denies headache, focal weakness/numbness. Denies fever, chills. Denies chest pain, shortness of breath, palpitations. Denies nausea, vomiting, diarrhea , abdominal pain. Allergies: colchicine PCP: Christian Dominguez - Physicial Exam PE: 10/26/19 13:52 GENERAL: Awake, alert, and fully oriented, in no acute distress HEAD: No signs of trauma EYES: PERRLA, EOMI, sclera anicteric, conjunctiva clear ENT: Oropharynx clear without exudates. Moist mucosa NECK: Normal ROM, supple, no lymphadenopathy, JVD, or masses LUNGS: Breath sounds equal, clear to auscultation bilaterally. No wheezes, and no crackles HEART: Regular rate and rhythm, normal S1 and S2, no murmurs, rubs or gallops ABDOMEN: Soft, nontender, normoactive bowel sounds. No guarding, no rebound. No masses EXTREMITIES: Normal range of motion, no edema. No clubbing or cyanosis. No cords , erythema, or tenderness NEUROLOGICAL: Normal speech, cranial nerves intact, equal strength and sensation b/l SKIN: Warm, Dry, normal turgor, no rashes or lesions noted. - Medical Decision Making 10/26/19 17:12 69-year-old female with multiple medical problems including PE, lupus, presyncope presents emergency department with presyncope lasting for an hour. Vitals within normal limits. Exam nonfocal. EKG nonischemic. Concern for cardiac arrhythmia as patient stated she felt like she was going to pass out. Patient admitted to telemetry observation Case discussed in detail with admitting physician including history, physical exam and ancillary studies. Admitting physician has assumed care for the patient, will follow all pending diagnostics and will complete the evaluation and treatment. Heart Score/ECG Review #1 10/26/19 17:12 Twelve-lead EKG was performed and reviewed by me. Normal sinus rhythm, rate 68. Normal axis and intervals. No ST elevations or T wave inversions.
[2019-10-26 20:38] VITALS: BMI 35.1
[2019-10-26] MEDS ORDERED: ALLOPURINOL 100 MG TABLET (FP) PO SCH (22:00)
[2019-10-26] MEDS ORDERED: ATORVASTATIN CA 20 MG TABLET (FP) PO SCH (22:00)
[2019-10-26] MEDS ORDERED: amLODIPine BESYLATE 5 MG TABLET (FP) PO SCH (22:00)
[2019-10-26] MEDS: APIXABAN 2.5 MG TABLET PO SCH (23:20)
[2019-10-27] MEDS ORDERED: LOSARTAN POTASSIUM 50 MG TABLET (FP) PO SCH (10:00)
[2019-10-27 10:19] VITALS: BP 147/74; PULSE 72; TEMP 97.5
[2019-10-27] MEDS: APIXABAN 2.5 MG TABLET PO SCH (11:03)
--- NOTE | 2019-10-27 12:38 | ECHO ---
Version: 1 Name: BEN GURROLA Exam: Adult Echocardiogram Study Date: 10/27/2019, 9:28 AM Age: 69 Years MMode/2D Measurements & Calculations IVSd: 0.83 cm LVIDs: 2.6 cm LVIDd: 3.9 cm LVPWd: 0.95 cm LVOT diam: 2.07 cm Ao root diam: 2.7 cm LA dimension: 3.5 cm Doppler Measurements & Calculations MV E max aaron: 57.2 cm/sec Med E/e': 9.4 MV A max aaron: 94.6 cm/sec Med Peak E' Aaron: 6.1 cm/sec MV E/A: 0.60 Lat E/e': 7.2 Lat Peak E' Aaron: 7.9 cm/sec Ao max P.3 mmHg Ao V2 max: 143.4 cm/sec Procedure The study was technically difficult with many images being suboptimal in quality. Left Ventricle The left ventricular size, thickness and function are normal. Grade I diastolic dysfunction, (abnorm al relaxation pattern). Right Ventricle The right ventricle is normal in size and function. Atria Normal left and right atrial size and function. Mitral Valve The mitral valve is normal in structure and function. Tricuspid Valve The tricuspid valve is normal in structure and function. There was insufficient TR detected to calcu late RV systolic pressure. Aortic Valve The aortic valve is normal in structure and function. No hemodynamically significant valvular aortic stenosis. Pulmonic Valve The pulmonic valve is not well visualized. Great Vessels The aortic root is normal size. Pericardium/Pleura There is no pericardial effusion. Summary Statements The study was technically difficult with many images being suboptimal in quality. The left ventricular size, thickness and function are normal Grade I diastolic dysfunction, (abnormal relaxation pattern). The right ventricle is normal in size and function. Stanley Lyons 10/27/2019, 12:37 PM Ordering Physician: Leticia Alcala Referring Physician: LETICIA ALCALA Performed By: Shivani Field
--- NOTE | 2019-10-27 12:39 | CON.CARD ---
Cardiology Consult (text) - Consultation Consultation Note: CC: presyncope 69 yo with history of R breast Cancer s/p chemo/xrt, HTN, HL, PE on eliquis, CKD who presents with presyncope. Was in usual state of health, went to work and sat at her desk suddenly felt lightheaded like she was going to pass out. Not sure how long it lasted, was going on until she got to the ER. Didn't lose consciousness. Has occasional lightheadedness episodes but not this bad since last admitted here in 2017. Sees Dr. Crowell for cardio, notes she had event monitor and stress testing in the office. Also had chest tightness during lightheadedness event, has had intermittently for a few years and is stable. Feels back to normal today. no chest pain, palps, edema. - Past Medical History Cardiovascular: Yes: HTN Pulmonary: Yes: Other Heme/Onc: Yes: Sickle Cell Trait, Other (DVT/PE) Musculoskeletal: Yes: Other Rheumatology: Yes: Gout - Past Surgical History Past Surgical History: Yes: Social hx: Never smoked, Social etoh fam hx: no h/o cad. ROS: Per hpi Ambulatory Orders Allopurinol [Zyloprim -] 100 mg PO HS 06/14/16 Atorvastatin Calcium 20 mg PO HS 06/14/16 Apixaban [Eliquis -] 2.5 mg PO BID #0 12/06/16 Amlodipine Besylate 5 mg PO HS 02/28/18 Cholecalciferol (Vitamin D3) [Vitamin D3] 1 cap PO ASDIR 03/01/19 Losartan Potassium 50 mg PO DAILY 10/26/19 Vital Signs Period Temp Pulse Resp BP Sys/Meneses Pulse Ox Last 24 Hr 97.5 F-99.5 F 65-80 18-22 132-167/68-81 97-100 NAD, calm no JVD, neck supple CTAB, nl effort rrr nl s1, s2 no mrg + bs soft nt nd ext without e/c/d + dp/pt aaox3 Laboratory Last Values WBC 4.6 K/mm3 (4.0-10.0) 10/26/19 13:15 RBC 3.84 M/mm3 (3.60-5.2) 10/26/19 13:15 Hgb 11.8 GM/dL (10.7-15.3) 10/26/19 13:15 Hct 35.7 % (32.4-45.2) 10/26/19 13:15 MCV 92.8 fl (80-96) 10/26/19 13:15 MCH 30.7 pg (25.7-33.7) 10/26/19 13:15 MCHC 33.0 g/dl (32.0-36.0) 10/26/19 13:15 RDW 14.1 % (11.6-15.6) 10/26/19 13:15 Plt Count 216 K/MM3 (134-434) 10/26/19 13:15 MPV 8.6 fl (7.5-11.1) 10/26/19 13:15 Absolute Neuts (auto) 2.1 K/mm3 (1.5-8.0) 10/26/19 13:15 Neutrophils % 46.2 % (42.8-82.8) 10/26/19 13:15 Lymphocytes % 42.3 % (8-40) H 10/26/19 13:15 Monocytes % 9.6 % (3.8-10.2) 10/26/19 13:15 Eosinophils % 0.9 % (0-4.5) 10/26/19 13:15 Basophils % 1.0 % (0-2.0) 10/26/19 13:15 Nucleated RBC % 0 % (0-0) 10/26/19 13:15 Sodium 138 mmol/L (136-145) 10/26/19 13:15 Potassium 5.1 mmol/L (3.5-5.1) 10/26/19 13:15 Chloride 106 mmol/L (98-107) 10/26/19 13:15 Carbon Dioxide 28 mmol/L (21-32) 10/26/19 13:15 Anion Gap 3 MMOL/L (8-16) L 10/26/19 13:15 BUN 17.1 mg/dL (7-18) 10/26/19 13:15 Creatinine 1.2 mg/dL (0.55-1.3) 10/26/19 13:15 Est GFR (CKD-EPI)AfAm 53.78 10/26/19 13:15 Est GFR (CKD-EPI)NonAf 46.40 10/26/19 13:15 Random Glucose 84 mg/dL (74-106) 10/26/19 13:15 Calcium 9.0 mg/dL (8.5-10.1) 10/26/19 13:15 Total Bilirubin 1.0 mg/dL (0.2-1) 10/26/19 13:15 AST 25 U/L (15-37) 10/26/19 13:15 ALT 21 U/L (13-61) 10/26/19 13:15 Alkaline Phosphatase 53 U/L (45-117) 10/26/19 13:15 Creatine Kinase 106 U/L (26-192) 10/26/19 13:15 Troponin I < 0.02 ng/ml (0.00-0.05) 10/27/19 07:00 Total Protein 7.8 g/dl (6.4-8.2) 10/26/19 13:15 Albumin 3.7 g/dl (3.4-5.0) 10/26/19 13:15 Urine Color Yellow 10/26/19 14:00 Urine Appearance Clear 10/26/19 14:00 Urine pH 6.0 (5.0-8.0) 10/26/19 14:00 Ur Specific [place] 1.012 (1.010-1.035) 10/26/19 14:00 Urine Protein 1+ (NEGATIVE) H 10/26/19 14:00 Urine Glucose (UA) Negative (NEGATIVE) 10/26/19 14:00 Urine Ketones Negative (NEGATIVE) 10/26/19 14:00 Urine Blood Trace (NEGATIVE) 10/26/19 14:00 Urine Nitrite Negative (NEGATIVE) 10/26/19 14:00 Urine Bilirubin Negative (NEGATIVE) 10/26/19 14:00 Urine Urobilinogen 0.2 mg/dL (0.2-1.0) 10/26/19 14:00 Ur Leukocyte Esterase Negative (NEGATIVE) 10/26/19 14:00 Urine WBC (Auto) 1 /hpf (0-5) 10/26/19 14:00 Urine RBC (Auto) 1 /hpf (0-4) 10/26/19 14:00 Urine Casts (Auto) 2 /lpf (0-8) 10/26/19 14:00 U Epithel Cells (Auto) 4.1 /HPF (0-5/HPF) 10/26/19 14:00 Urine Bacteria (Auto) 63.0 /hpf (NEGATIVE) 10/26/19 14:00 EKG: nsr, nl axis/intervals. no ST T wave changes, similar to prior MPI 12/04: 4:30 min; no STs; no ischemia; nl EF Echo 10/06: nl LV/EF; RV tds; mild MR/TR Holter 01/06: NSR; rare APCs/PVCs; brief PSVT (6b)--pt says one time palpitations then were skipped beat (not racing/fluttering). echo 10/2019 tds, nl LV function, abnormal relaxation, nl RV holter 01/2019 sinus, PACs tele: sinus 69 yo with history of R breast Cancer s/p chemo/xrt, HTN, HL, PE on eliquis, CKD who presents with presyncope presyncope, chest tightness - echo unremarkable - carotid doppler pending - orthostatics negative - had lightheadness this AM at 6:30 - monitoring on tele, no events - EKG wnl and ce's neg x 2, less likely ACS - chest tightness stable for years, prior normal stress test, atypical for ischemic etiology - if above testing unremarkable, no further inpatient cardiac workup. follow up with Dr. Crowell as outpatient htn - cont home meds h/o PE - con't eliquis
--- NOTE | 2019-10-27 13:43 | DS ---
Physical Exam: SUBJECTIVE: Patient seen and examined, had episode of lighheadness this morning , briefly, has now resolved. for discharge home today and she agrees to follow up with Dr. Crowell. OBJECTIVE: Patient is a 69 year old female with a significant past medical history of pulmonary embolism on 09/2014 (on eliquis, positive lupus anticoagulant), hypertension, hyperlipidemia, right breast cancer (s/p chemo, radiation, and lumpectomy, now in full remission) and right arm lymphedema. Patient presents to the ED with feelings of lightheadedness at work. She was sitting at her desk at work when she began to feel lightheaded, and she would lose her balance if she stood up. Lightheadedness persisted for about an hour and nothing made it better. She denies any headaches during episode of lightheadedness and denies any nausea/vomiting. The lightheadedness has happened to her in the past. She reports having a workup by neurologist which yielded no findings. Head CT in the ED shows no acute pathology. She denies any headache, nausea, vomiting, fevers, abdominal pain, diarrhea, bloody/tarry stools. She denies chest pain or shortness of breath. During hospital stay her cardiac workup was negative: echo within normal limit, carotid ultrasound with mild plaque, head ct negative. She is not orthostatic nor have there been any events on tele monitoring. She was evaluated by a lead setter during her stay and cleared for discharge. She is encouraged to follow up with Dr. Crowell for further workup/testing. She denies any history of anxiety or panic disorder. Vital Signs Period Temp Pulse Resp BP Sys/Meneses Pulse Ox Last 24 Hr 97.5 F-99.5 F 65-80 18-22 132-167/68-81 97-100 PHYSICAL EXAM GENERAL: Awake, alert, and fully oriented, in no acute distress. HEAD: Normal with no signs of trauma. EYES: Pupils equal, round and reactive to light, extraocular movements intact, sclera anicteric, conjunctiva clear. No lid lag. EARS, NOSE, THROAT: Ears normal, nares patent, oropharynx clear without exudates. Moist mucous membranes. NECK: Normal range of motion, supple without lymphadenopathy, JVD, or masses. LUNGS: Breath sounds equal, clear to auscultation bilaterally. HEART: Regular rate and rhythm ABDOMEN: Soft, nontender, not distended, normoactive bowel sounds, no guarding, no rebound, no masses. No hepatomegaly or splenomegaly. MUSCULOSKELETAL: Normal range of motion at all joints. No bony deformities or tenderness. No CVA tenderness. UPPER EXTREMITIES: right arm non pitting edema, has hx of lymphedema LOWER EXTREMITIES: No peripheral edema. NEUROLOGICAL: Normal speech. Normal gait. PSYCHIATRIC: Cooperative. Good eye contact. Appropriate mood and affect. SKIN: Warm, dry, normal turgor, no rashes or lesions noted, normal capillary refill. LABS Laboratory Results - last 24 hr 10/26/19 10/26/19 10/26/19 13:15 13:15 14:00 WBC 4.6 RBC 3.84 Hgb 11.8 Hct 35.7 MCV 92.8 MCH 30.7 MCHC 33.0 RDW 14.1 Plt Count 216 MPV 8.6 Absolute Neuts (auto) 2.1 Neutrophils % 46.2 Lymphocytes % 42.3 H Monocytes % 9.6 Eosinophils % 0.9 Basophils % 1.0 Nucleated RBC % 0 Sodium 138 Potassium 5.1 Chloride 106 Carbon Dioxide 28 Anion Gap 3 L BUN 17.1 Creatinine 1.2 Est GFR (CKD-EPI)AfAm 53.78 Est GFR (CKD-EPI)NonAf 46.40 Random Glucose 84 Calcium 9.0 Total Bilirubin 1.0 AST 25 ALT 21 Alkaline Phosphatase 53 Creatine Kinase 106 Troponin I < 0.02 Total Protein 7.8 Albumin 3.7 Urine Color Yellow Urine Appearance Clear Urine pH 6.0 Ur Specific [place] 1.012 Urine Protein 1+ H Urine Glucose (UA) Negative Urine Ketones Negative Urine Blood Trace Urine Nitrite Negative Urine Bilirubin Negative Urine Urobilinogen 0.2 Ur Leukocyte Esterase Negative Urine WBC (Auto) 1 Urine RBC (Auto) 1 Urine Casts (Auto) 2 U Epithel Cells (Auto) 4.1 Urine Bacteria (Auto) 63.0 10/26/19 10/27/19 19:15 07:00 WBC RBC Hgb Hct MCV MCH MCHC RDW Plt Count MPV Absolute Neuts (auto) Neutrophils % Lymphocytes % Monocytes % Eosinophils % Basophils % Nucleated RBC % Sodium Potassium Chloride Carbon Dioxide Anion Gap BUN Creatinine Est GFR (CKD-EPI)AfAm Est GFR (CKD-EPI)NonAf Random Glucose Calcium Total Bilirubin AST ALT Alkaline Phosphatase Creatine Kinase Troponin I < 0.02 < 0.02 Total Protein Albumin Urine Color Urine Appearance Urine pH Ur Specific [place] Urine Protein Urine Glucose (UA) Urine Ketones Urine Blood Urine Nitrite Urine Bilirubin Urine Urobilinogen Ur Leukocyte Esterase Urine WBC (Auto) Urine RBC (Auto) Urine Casts (Auto) U Epithel Cells (Auto) Urine Bacteria (Auto) HOSPITAL COURSE: Date of Admission:10/26/19 Date of Discharge: 10/27/19 Minutes to complete discharge: 45 Discharge Summary Problems reviewed: Yes Reason For Visit: PRE SYNCOPE Current Active Problems Prophylactic measure (Acute) Condition: Improved - Instructions Diet, Activity, Other Instructions: Mrs Castillo: You were admitted for lightheadness/dizziness. Your cardiac workup was negative and you were evaluated by a lead setter who has cleared you for discharge. Please contact Dr. Crowell for further testing. No changes have been made for your home medications. Thank you for allowing us to care for you. Diane Jane [facility] [phone] Referrals: Christian Dominguez MD [Primary Care Provider] - Disposition: HOME - Home Medications Comprehensive Discharge Medication List: Ambulatory Orders Allopurinol [Zyloprim -] 100 mg PO HS 06/14/16 Atorvastatin Calcium 20 mg PO HS 06/14/16 Apixaban [Eliquis -] 2.5 mg PO BID #0 12/06/16 Amlodipine Besylate 5 mg PO HS 02/28/18 Cholecalciferol (Vitamin D3) [Vitamin D3] 1 cap PO ASDIR 03/01/19 Losartan Potassium 50 mg PO DAILY 10/26/19 Problem List - Problems (1) Lightheadedness Assessment/Plan: cardiac workup negative. she will follow up with PCP and lead setter for further workup. Code(s): R42 - DIZZINESS AND GIDDINESS (2) Near syncope Assessment/Plan: resolved. Code(s): R55 - SYNCOPE AND COLLAPSE (3) Benign positional vertigo Assessment/Plan: no cardiac events Code(s): H81.10 - BENIGN PAROXYSMAL VERTIGO, UNSPECIFIED EAR (4) Breast cancer, right Assessment/Plan: follows with oncologist. in remission since 2017 Code(s): C50.911 - MALIGNANT NEOPLASM OF UNSP SITE OF RIGHT FEMALE BREAST Qualifiers: Breast location: upper outer quadrant of breast (5) HTN (hypertension) Assessment/Plan: controlled. continue meds Code(s): I10 - ESSENTIAL (PRIMARY) HYPERTENSION (6) Pulmonary embolism Assessment/Plan: on eliquis Code(s): I26.99 - OTHER PULMONARY EMBOLISM WITHOUT ACUTE COR PULMONALE Qualifiers: Pulmonary embolism type: other Chronicity: chronic Acute cor pulmonale presence: without acute cor pulmonale Qualified Code(s): I27.82 - Chronic pulmonary embolism (7) Obesity Assessment/Plan: outpatient follow up Code(s): E66.9 - OBESITY, UNSPECIFIED (8) Prophylactic measure Assessment/Plan: discharge home. Code(s): Z29.9 - ENCOUNTER FOR PROPHYLACTIC MEASURES, UNSPECIFIED This patient is new to me today: No Emergency Visit: Yes ED Registration Date: 10/26/19 Care time: The patient presented to the Emergency Department on the above date and was hospitalized for further evaluation of their emergent condition. Critical Care patient: No - Discharge Referral Referred to [facility] Med [facility] No
[2019-10-28] MEDS ORDERED: CHOLECALCIFEROL (VIT D3) 1,000 UNIT (25 MCG) TABLET PO SCH (10:00)
== END 2019-10-27 14:49 | disposition home or self-care (01) ==
LOC: JER 10:45 → JERBED 16:37 → J4W 20:23
PROVIDERS: ADMIT Internal Medicine; ATTEND Nurse Practitioner Family
DX: R55 Syncope and collapse (principal); R07.89 Other chest pain; R42 Dizziness and giddiness; I10 Essential (primary) hypertension; E78.5 Hyperlipidemia, unspecified; E66.9 Obesity, unspecified; Z68.35 Body mass index [BMI] 35.0-35.9, adult; Z29.8 Encounter for other specified prophylactic measures; Z86.711 Personal history of pulmonary embolism; Z79.01 Long term (current) use of anticoagulants; Z92.3 Personal history of irradiation; Z85.3 Personal history of malignant neoplasm of breast
CPT/HCPCS: 36415; 70450-TC; 80053; 81003; 82550; 84484; 85025; 87086; 93005; 93010; 93306-TC; 93880-TC; 97116-GP; 97161-GP; 99285-25; G0378

== ENCOUNTER 2021-07-25 17:41 | Emergency (ER) | payer BC, OTHER ==
[2021-07-25 17:52] VITALS: BP 168/70; PULSE 69; TEMP 98.3; BMI 75.6
[2021-07-25] MEDS ORDERED: LISINOPRIL 10 MG TABLET ONE (18:18)
== END 2021-07-25 20:10 | disposition home or self-care (01) ==
LOC: FER 17:41
DX: S09.90XA Unspecified injury of head, initial encounter (principal); R26.81 Unsteadiness on feet
CPT/HCPCS: 70450-TC; 99284-25

== ENCOUNTER 2023-02-26 11:08 | Emergency (ER) | payer BC, OTHER ==
[2023-02-26 11:30] VITALS: BMI 34.3
[2023-02-26 12:58] LABS: EPI CELLS 12 /uL (0-25.1); HYALINE CASTS 0 /uL (0-3.1); PH,URINE 6.5 (5.0-8.0); URINE APPEARANCE CLEAR; URINE BACTERIA 294 /uL (0-1359); URINE BILIRUBIN NEGATIVE (NEGATIVE); URINE COLOR YELLOW; URINE GLUCOSE (UA) NEGATIVE (NEGATIVE); URINE KETONE NEGATIVE (NEGATIVE); URINE LEUK ESTERASE NEGATIVE (NEGATIVE); URINE NITRITE NEGATIVE (NEGATIVE); URINE PROTEIN 1+ (NEGATIVE); URINE UROBILINOGEN 0.2 mg/dL (0.2-1.0); URINE WBC 21 /uL (0-25.8)
[2023-02-26 13:43] LABS: BASO % 1.5 % (0-2.0); EOS % 2.3 % (0-4.5); HEMATOCRIT 39.1 % (32.4-45.2); HEMOGLOBIN 12.9 GM/dL (10.7-15.3); MCHC 33.1 g/dl (32.0-36.0); MEAN CELL VOLUME 90.6 fl (80-96); MEAN PLT VOLUME 8.1 fl (7.5-11.1); MONO % 9.1 % (3.8-10.2); NEUT % 47.1 % (42.8-82.8); PLATELET COUNT 245 10^3/uL (134-434); RBC 4.32 M/mm3 (3.60-5.2); RDW 14.4 % (11.6-15.6); WHITE BLOOD COUNT 4.5 K/mm3 (4.0-10.0)
[2023-02-26 14:08] LABS: POTASSIUM 4.4 mmol/L (3.5-5.1)
[2023-02-26 14:10] LABS: ALBUMIN 3.8 g/dl (3.4-5.0); CALCIUM 9.9 mg/dL (8.5-10.1)
[2023-02-26 14:11] LABS: BLOOD UREA NITROGEN 22.4 mg/dL (7-18)
[2023-02-26 14:14] LABS: CREATININE 1.3 mg/dL (0.55-1.3)
[2023-02-26 14:15] LABS: BILIRUBIN,TOTAL 0.6 mg/dL (0.2-1); TOT PROT 7.9 g/dl (6.4-8.2)
[2023-02-26 14:19] LABS: N-TERMINAL BNP 69.4 pg/ml (5-125)
[2023-02-26 14:55] LABS: URINE RBC 20 /uL (0-23.9)
[2023-02-26 17:57] VITALS: BP 181/74; PULSE 70; RESP 16; TEMP 98.1
== END 2023-02-26 19:32 | disposition home or self-care (01) ==
LOC: JER 11:08
DX: I10 Essential (primary) hypertension (principal); R42 Dizziness and giddiness
CPT/HCPCS: 36415; 71046-TC-FY; 71275-TC; 80053; 81003; 83690; 83880; 84484; 85025; 85379; 93005; 93010; 99285-25; Q9967

== ENCOUNTER 2024-01-19 04:22 | Day surgery (SDC) | payer BC, OTHER ==
[2024-01-14 15:01] VITALS: BMI 35.2
[2024-01-19] MEDS ORDERED: ACETAMINOPHEN 325 MG TABLET (FP) PO PRN (07:55)
[2024-01-19] MEDS ORDERED: ONDANSETRON 4 MG/2 ML VIAL IVPUSH PRN (07:55)
[2024-01-19] MEDS ORDERED: LACTATED RINGERS SOLUTION 1,000 ML IV SCH (08:00)
[2024-01-19] MEDS ORDERED: MIDAZOLAM HCL 2 MG/2 ML SINGLE DOSE VIAL ONE (08:23)
[2024-01-19] MEDS ORDERED: FENTANYL CITRATE/PF 50 MCG/ML VIAL ONE ×3 (08:23→10:49)
[2024-01-19] MEDS ORDERED: PROPOFOL 20 ML ONE (08:23)
[2024-01-19] MEDS: ceFAZolin SODIUM 1 GM VIAL IVPB ONE (09:28)
[2024-01-19] MEDS ORDERED: ceFAZolin SODIUM 1 GM VIAL ONE ×2 (09:28)
[2024-01-19 11:50] VITALS: BP 141/73; PULSE 73; RESP 16; TEMP 96.8
== END 2024-01-19 13:27 | disposition home or self-care (01) ==
LOC: JASU-SURG 04:22
PROVIDERS: ATTEND Obstetrics & Gynecology
PROC: 0UB98ZZ Excision of Uterus, Via Natural or Artificial Opening Endoscopic (ICD-10-PCS; principal; 2024-01-19 09:00)
DX: N95.0 Postmenopausal bleeding (principal); N84.0 Polyp of corpus uteri
CPT/HCPCS: 88305-TC; 94760

== ENCOUNTER 2024-03-04 04:28 | Day surgery (SDC) | payer BC, OTHER ==
[2024-03-03 12:12] VITALS: BMI 25.0
[2024-03-04 08:02] VITALS: RESP 18; TEMP 97.7
[2024-03-04 10:28] VITALS: BP 131/63; PULSE 62
== END 2024-03-04 10:55 | disposition home or self-care (01) ==
LOC: JASU-ENDO 04:28
PROVIDERS: ATTEND Internal Medicine Gastroenterology
PROC: 0DB98ZX Excision of Duodenum, Via Natural or Artificial Opening Endoscopic, Diagnostic (ICD-10-PCS; 2024-03-04)
PROC: 0DB78ZX Excision of Stomach, Pylorus, Via Natural or Artificial Opening Endoscopic, Diagnostic (ICD-10-PCS; 2024-03-04)
PROC: 0DB68ZX Excision of Stomach, Via Natural or Artificial Opening Endoscopic, Diagnostic (ICD-10-PCS; 2024-03-04)
PROC: 0DJD8ZZ Inspection of Lower Intestinal Tract, Via Natural or Artificial Opening Endoscopic (ICD-10-PCS; principal; 2024-03-04 08:30)
DX: Z12.11 Encounter for screening for malignant neoplasm of colon (principal); K57.30 Diverticulosis of large intestine without perforation or abscess without bleeding; K29.50 Unspecified chronic gastritis without bleeding; K29.80 Duodenitis without bleeding
CPT/HCPCS: 43239; G0121; 88305-TC; 88342-TC